=== PATIENT | female | born 1940 | race Caucasian/White ===

== ENCOUNTER 2018-05-11 10:18 | Observation (INO) | payer MEDICARE, OTHER, MEDICAID, SELFPAY ==
[2018-05-11] VITALS (79 sets, daily range): BP systolic 118–172; BP diastolic 44–93; PULSE 50–83; RESP 13–26; TEMP 36.5–37.7; O2SAT 90–99
--- NOTE | 2018-05-11 10:25 | W.ED.GENAD ---
Discharge Plan Disposition Condition: Improving Discharge Details Chief Complaint: Chest Pain Reason For Visit: CHEST PAIN Admit Date/Time: 05/11/18 17:37 Admit Provider: Andres Lewis Attending Provider: Andres Lewis Primary Care Provider: Tameka Kilgore ED Provider: Issa Alves Discharge Instructions Activity:: Activity as Tolerated Equipment/Supplies:: No Equipment Needed Diet:: Heart Healthy Discharge Orders Discharge Orders: Discharge Order (Routine); Ordered 05/12/18 Ordered By: Radha Farooq Discharge Data Discharge Date/Time-TO BE ENTERED AT DEPARTURE: 05/11/18 18:58 Medical Decision Making <TRESA Rahman - Last Filed: 05/13/18 10:54> Patient is 78-year-old female, accompanied by her daughter and brought in via EMS, with chief complaint of left-sided chest discomfort. She states that she awoke with this discomfort this morning at 0600. Patient has history of PA, hyperlipidemia, CKD, hypertension, poliomyelitis, COPD, anemia. Patient is status post CABG. Patient reports she is done quite well yesterday. No trauma. States she went for 2 half hour walks yesterday with no discomfort or anginal-like symptoms. States when she awoke with her discomfort, she felt weak which she describes further as fatigue. States she then laid back down. When she got up the second time, she found a friend who came to sit with her advise she contact EMS. EMS advised to take a nitro. She reports that she gave herself one nitro which did help with her symptoms. She was given 2 subsequent sublingual nitros in route to the hospital by EMS. Patient did receive aspirin from EMS. Reports that currently she is asymptomatic. Denies any palpitations. Patient reports that the pain does not feel like her previous PA is at that time she was having back pain and denies any back pain at this time peer On exam, patient has reproducible discomfort under the left breast, pain does wrap around with dermatomal distribution. No rashes noted. No signs of trauma. Lungs are clear. She is endorsing shortness of breath. Normal sinus rhythm, no murmurs rubs or gallops. She is endorsing some diffuse discomfort with palpation on exam of the abdomen but no peritoneal findings. No back pain. No CVA tenderness EKG reviewed by Dr. Greenfield. Patient is noted to be in normal sinus rhythm with a rate of 79. Advises no acute ischemic changes are noted. The patient's history, I am primarily concerned with cardiac etiology. However, his pain is reproducible on exam, is not exertional and is not similar to previous MIs, also consider other possible etiologies such as muscular skeletal discomfort, stress, pulmonary source. Calves are soft and nontender. No lower extremity edema. Patient is not anticoagulated. Chest x-ray reviewed by radiologist. No acute pulmonary process noted. Laboratory evaluation without significant abnormality. Troponin <0.02. BNP is minimally elevated. Repeat troponin remains <0.02. Patient states that the pain under the left breast had resolved Discussed treatment options with patient and her family. Her HEART score is moderate at 5. 2 negative troponins. discussed inpatient observation vs. outpatient management. Given her history and severity of discomfort that she experienced this morning she and her family feel inpatient care is appropriate. Given the HEART score, particularly the patients history, I agree with this plan. At this time, we do not have telemetry bed available. consulted with hospitalist at [facility]. He advised that outpatient care is appropriate at this time. However, he did advised that we could repeat a 3rd troponin. If this is negative, he reported it was delonte unlikely to be cardiac based. He does not know the tele bed availability and will call back. No call back from [facility]. 3rd troponin is pending. Again, discussed inpatient vs. outpatient treatment with the patient and her family and they prefer inpatient care. Tele is now available here, will consult with hospitalist here. At the end of my shift, care was transitioned to Sin Alves NP with 3rd troponin pending. He will discuss admission with hospitalist. HPI <TRESA Rahman - Last Filed: 05/13/18 10:54> General Mode of arrival: EMS. Date/Time Provider Initiated Documentation: 05/11/18 10:23. Limitations to Documentation: no limitations. Information obtained by: patient and family. History of Present Illness 78 year old F presents to the emergency department with the chief complaint of left sided chest pain, described as mild (states that pain has improved, pain was severe when it initially began upon awakening this AM), Quality is described as aching, and is localized to the chest. Patient reports no radiation; denies radiation to back, neck, extremity and abdomen. No relieving factors improve symptom(s), No exacerbating factors reported . Patient notes chest pain and shortness of breath (states this too has since resolved, associates with her COPD); denies cough, fever/chills, headaches, loss of appetite, nausea/vomiting, rash, syncope and weakness. Patient did receive the following treatments prior to arrival, Aspirin and other (sublingual nitro) Related Data Home Medications Medication Instructions Recorded Confirmed metoprolol tartrate 50 mg PO BID 02/15/17 05/11/18 pravastatin 20 mg PO DAILY 02/15/17 05/11/18 fluticasone-salmeterol [Advair 1 puff INHALATION BID #1 inh 05/03/17 05/11/18 Diskus] furosemide 40 mg PO DAILY #90 tab 07/25/17 isosorbide dinitrate 30 mg PO DAILY #90 tab 07/25/17 05/11/18 losartan 100 mg PO DAILY #90 tab 07/25/17 05/11/18 gabapentin 100 mg PO HS PRN #30 tab-cap 10/25/17 nystatin 100,000 unit/gram topical 1 applic TP TID PRN #30 gm 03/27/18 05/11/18 cream aspirin 81 mg PO DAILY #30 tab 05/12/18 omeprazole 20 mg PO DAILY #30 cap 05/12/18 Previous Rx's Medication Instructions Recorded fluticasone-salmeterol [Advair 1 puff INHALATION BID #1 inh 05/03/17 Diskus] furosemide 40 mg PO DAILY #90 tab 07/25/17 isosorbide dinitrate 30 mg PO DAILY #90 tab 07/25/17 losartan 100 mg PO DAILY #90 tab 07/25/17 nystatin 100,000 unit/gram topical 1 applic TP TID PRN #30 gm 03/27/18 cream aspirin 81 mg PO DAILY #30 tab 05/12/18 omeprazole 20 mg PO DAILY #30 cap 05/12/18 Allergies Allergy/AdvReac Type Severity Reaction Status Date / Time trimethoprim Allergy Intermediate Unverified 05/11/18 10:24 Sulfa (Sulfonamide Allergy Mild Unverified 05/11/18 10:24 Antibiotics) latex Allergy Skin Rash Unverified 05/11/18 10:24 tramadol AdvReac Mild Nausea Unverified 05/11/18 10:24 General Stated Complaint: Chest Pain ABNER: 2 Review of Systems <TRESA Rahman - Last Filed: 05/13/18 10:54> Constitutional Reports as per HPI, Denies chills, Denies fatigue, Denies fever(s) and Denies headache(s) ENT Denies headache(s) Cardiovascular Reports as per HPI, Reports chest pain, Reports chest pain at rest, Denies chest pain with activity (she reports no activitysince the onset of symptoms), Denies diaphoresis, Denies syncope, Denies pedal edema, Denies irregular heart rhythm, Denies leg edema, Denies lightheadedness, Denies radiating jaw, neck or arm pain, Denies palpitations and Reports dyspnea (associates with COPD) Respiratory Reports as per HPI, Denies cough, Reports pain on inspiration, Reports dyspnea (associates with COPD) and Denies wheezing Gastrointestinal Reports as per HPI, Denies abdominal pain, Denies change in stool character, Denies nausea and Denies vomiting Genitourinary Reports system reviewed and no additional complaints, except as docu (denies any change in urinary habits) Musculoskeletal Reports as per HPI and Denies back pain Integumentary/Breasts Reports as per HPI and Denies rash Neurologic Denies syncope and Denies headache(s) Endocrine Denies fatigue and Denies palpitations Allergic/Immunologic Denies wheezing Exam <TRESA Rahman - Last Filed: 05/13/18 10:54> Const General: cooperative, healthy appearing, comfortable, no acute distress and well developed Nutritional Appearance: average body habitus and well nourished Orientation: alert, awake and oriented x3 HENMT Head: normal to inspection Ears: hearing grossly normal bilaterally Mouth: moist mucous membranes Chest Chest: normal inspection of the chest (no visible abnormalities. Patient has discomfort with palpation under the left breast and extending around the left lateral chest wall. No discoloration, no rash. ), normal palpation of entire chest wall, no crepitus, tenderness and No rash Breast inspection: normal inspection of the breasts Resp Effort & Inspection: normal respiratory effort, able to speak in complete sentences and no respiratory distress Auscultation: clear to auscultation bilaterally, no rales, no rhonchi and no wheezes Cardio Rate: regular rate Rhythm: regular rhythm Heart Sounds: S1 normal and S2 normal GI Inspection: normal to inspection, no edema and non-distended Palpation: soft, no hepatosplenomegaly, not firm, no guarding, not rigid and nontender Auscultation: normal bowel sounds Back/Spine/Pelvis Back: no CVA tenderness Thoracic/Lumbar Spine: thoracic and lumbar spine normal to inspection Skin General skin exam: no rashes or lesions noted Trauma: no lacerations or abrasions Neuro General: alert, awake and oriented x3 Cognition: normal cognition Speech: speech normal Gait: normal gait Extrem General: normal to inspection, normal capillary refill, no pedal edema, no calf tenderness and normal gait Psych Appearance: grossly normal and well kempt Mental Status: mental status grossly normal Speech and Movement: speech and movement normal Course <TRESA Rahman - Last Filed: 05/13/18 10:54> Vital Signs Temperature 36.5 C 05/11/18 10:16 Pulse 81 05/11/18 10:16 Respiratory Rate 22 05/11/18 10:16 Blood Pressure 140/75 05/11/18 10:16 Pulse Oximetry 97 05/11/18 10:16 Temperature 36.5 C 05/11/18 10:16 Temperature Source Skin 05/11/18 10:16 Pulse 81 05/11/18 10:16 Respiratory Rate 22 05/11/18 10:20 Respiratory Effort 05/11/18 10:20 Respiratory Depth Normal 05/11/18 10:20 Respiratory Pattern Normal 05/11/18 10:20 Blood Pressure 140/75 05/11/18 10:16 Pulse Oximetry 97 05/11/18 10:16 Oxygen Delivery Method Room Air 05/11/18 10:16 Oxygen Flow Rate 0 05/11/18 10:16 Pain Level 7 05/11/18 10:20 Sign Out <TRESA Rahman - Last Filed: 05/13/18 10:54> Sign Out Data: Sign Out Comment: Care transitioned to Sin Alves NP with 3rd troponin pending, awaiting hospitalist consult. Last updated by Ml Jessica PA at 05/11/18 17:15 Post-Handoff Eval: Patient admitted to hospital service still pending third troponin and no change in condition. Patient was in agreement of plan of care to be admitted for further observation due to chest pain and moderate risk factors.
--- NOTE | 2018-05-11 10:37 | DI.RAD_ITS ---
SYMPTOM/DIAGNOSISs: LEFT SIDED CP PA AND LATERAL CHEST: 05/11 The heart is not enlarged. There are mediastinal vascular clips consistent with previous CABG surgery. The lungs are clear. No pleural effusion seen. CONCLUSION: No evidence of acute disease.
[2018-05-11 10:41] LABS: Abs Immature Grans 0.01 k/cumm (0.0-0.09); Absolute Basophil Count 0.01 k/cumm (0.0-0.2); Absolute Eosinophil Count 0.12 k/cumm (0.0-0.7); Absolute Lymphocyte Count 0.79 k/cumm (1.2-3.4); Absolute Monocyte Count 0.45 k/cumm (0.11-0.7); Absolute Neutrophil Count 4.99 k/cumm (1.2-6.7); Basophils % 0.2; Eosinophils % 1.9; HCT 42.7 % (36.0-46.0); HGB 14.2 g/dL (12.0-15.5); Immature Grans % 0.2; Lymphocytes % 12.4; Mean Corp. HGB Concentration 33.3 g/dL (32.0-36.0); Mean Corpuscular Hemoglobin 29.5 pg (27.0-33.0); Mean Corpuscular Volume 88.6 fL (80-95); Mean Platelet Volume 11.3 fL (8.0-11.0); Monocytes % 7.1; Neutrophils % 78.2; Platelet Count 157 x1000/uL (130-400); RBC 4.82 m/cumm (4.00-5.20); RBC Distribution Width 13.7 % (11.7-14.6); White Blood Cell Count 6.37 k/cumm (4.4-10.8)
--- NOTE | 2018-05-11 10:43 | ED.GENADUL_ITS ---
Discharge Plan Disposition Condition: Improving Discharge Details Chief Complaint: Chest Pain Reason For Visit: CHEST PAIN Admit Date/Time: 05/11/18 17:37 Admit Provider: Andres Lewis Attending Provider: Andres Lewis Primary Care Provider: Tameka Kilgore ED Provider: Issa Alves Discharge Instructions Activity:: Activity as Tolerated Equipment/Supplies:: No Equipment Needed Diet:: Heart Healthy Discharge Orders Discharge Orders: Discharge Order (Routine); Ordered 05/12/18 Ordered By: Radha Farooq Discharge Data Discharge Date/Time-TO BE ENTERED AT DEPARTURE: 05/11/18 18:58 Medical Decision Making <TRESA Rahman - Last Filed: 05/13/18 10:54> Patient is 78-year-old female, accompanied by her daughter and brought in via EMS, with chief complaint of left-sided chest discomfort. She states that she awoke with this discomfort this morning at 0600. Patient has history of LA, hyperlipidemia, CKD, hypertension, poliomyelitis, COPD, anemia. Patient is status post CABG. Patient reports she is done quite well yesterday. No trauma. States she went for 2 half hour walks yesterday with no discomfort or anginal-like symptoms. States when she awoke with her discomfort, she felt weak which she describes further as fatigue. States she then laid back down. When she got up the second time, she found a friend who came to sit with her advise she contact EMS. EMS advised to take a nitro. She reports that she gave herself one nitro which did help with her symptoms. She was given 2 subsequent sublingual nitros in route to the hospital by EMS. Patient did receive aspirin from EMS. Reports that currently she is asymptomatic. Denies any palpitations. Patient reports that the pain does not feel like her previous LA is at that time she was having back pain and denies any back pain at this time peer On exam, patient has reproducible discomfort under the left breast, pain does wrap around with dermatomal distribution. No rashes noted. No signs of trauma. Lungs are clear. She is endorsing shortness of breath. Normal sinus rhythm, no murmurs rubs or gallops. She is endorsing some diffuse discomfort with palpation on exam of the abdomen but no peritoneal findings. No back pain. No CVA tenderness EKG reviewed by Dr. Greenfield. Patient is noted to be in normal sinus rhythm with a rate of 79. Advises no acute ischemic changes are noted. The patient's history, I am primarily concerned with cardiac etiology. However , his pain is reproducible on exam, is not exertional and is not similar to previous MIs, also consider other possible etiologies such as muscular skeletal discomfort, stress, pulmonary source. Calves are soft and nontender. No lower extremity edema. Patient is not anticoagulated. Chest x-ray reviewed by radiologist. No acute pulmonary process noted. Laboratory evaluation without significant abnormality. Troponin <0.02. BNP is minimally elevated. Repeat troponin remains <0.02. Patient states that the pain under the left breast had resolved Discussed treatment options with patient and her family. Her HEART score is moderate at 5. 2 negative troponins. discussed inpatient observation vs. outpatient management. Given her history and severity of discomfort that she experienced this morning she and her family feel inpatient care is appropriate. Given the HEART score, particularly the patients history, I agree with this plan. At this time, we do not have telemetry bed available. consulted with hospitalist at [facility]. He advised that outpatient care is appropriate at this time. However, he did advised that we could repeat a 3rd troponin. If this is negative, he reported it was delonte unlikely to be cardiac based. He does not know the tele bed availability and will call back. No call back from [facility]. 3rd troponin is pending. Again, discussed inpatient vs. outpatient treatment with the patient and her family and they prefer inpatient care. Tele is now available here, will consult with hospitalist here. At the end of my shift, care was transitioned to Sin Alves NP with 3rd troponin pending. He will discuss admission with hospitalist. HPI <TRESA Rahman - Last Filed: 05/13/18 10:54> General Mode of arrival: EMS . Date/Time Provider Initiated Documentation: 05/11/18 10:23 . Limitations to Documentation: no limitations . Information obtained by: patient and family . History of Present Illness 78 year old F presents to the emergency department with the chief complaint of left sided chest pain, described as mild (states that pain has improved, pain was severe when it initially began upon awakening this AM), Quality is described as aching, and is localized to the chest. Patient reports no radiation; denies radiation to back, neck, extremity and abdomen. No relieving factors improve symptom(s), No exacerbating factors reported . Patient notes chest pain and shortness of breath (states this too has since resolved, associates with her COPD); denies cough, fever/chills, headaches, loss of appetite, nausea/vomiting, rash, syncope and weakness. Patient did receive the following treatments prior to arrival, Aspirin and other ( sublingual nitro) Related Data Home Medications Medication Instructions Recorded Confirmed metoprolol tartrate 50 mg PO BID 02/15/17 05/11/18 pravastatin 20 mg PO DAILY 02/15/17 05/11/18 fluticasone-salmeterol [Advair 1 puff INHALATION BID #1 inh 05/03/17 05/11/18 Diskus] furosemide 40 mg PO DAILY #90 tab 07/25/17 isosorbide dinitrate 30 mg PO DAILY #90 tab 07/25/17 05/11/18 losartan 100 mg PO DAILY #90 tab 07/25/17 05/11/18 gabapentin 100 mg PO HS PRN #30 tab-cap 10/25/17 nystatin 100,000 unit/gram topical 1 applic TP TID PRN #30 gm 03/27/18 05/11/18 cream aspirin 81 mg PO DAILY #30 tab 05/12/18 omeprazole 20 mg PO DAILY #30 cap 05/12/18 Previous Rx's Medication Instructions Recorded fluticasone-salmeterol [Advair 1 puff INHALATION BID #1 inh 05/03/17 Diskus] furosemide 40 mg PO DAILY #90 tab 07/25/17 isosorbide dinitrate 30 mg PO DAILY #90 tab 07/25/17 losartan 100 mg PO DAILY #90 tab 07/25/17 nystatin 100,000 unit/gram topical 1 applic TP TID PRN #30 gm 03/27/18 cream aspirin 81 mg PO DAILY #30 tab 05/12/18 omeprazole 20 mg PO DAILY #30 cap 05/12/18 Allergies Allergy/AdvReac Type Severity Reaction Status Date / Time trimethoprim Allergy Intermediate Unverified 05/11/18 10:24 Sulfa (Sulfonamide Allergy Mild Unverified 05/11/18 10:24 Antibiotics) latex Allergy Skin Rash Unverified 05/11/18 10:24 tramadol AdvReac Mild Nausea Unverified 05/11/18 10:24 General Stated Complaint: Chest Pain ABNER: 2 Review of Systems <TRESA Rahman - Last Filed: 05/13/18 10:54> Constitutional Reports as per HPI, Denies chills, Denies fatigue, Denies fever(s) and Denies headache(s) ENT Denies headache(s) Cardiovascular Reports as per HPI, Reports chest pain, Reports chest pain at rest, Denies chest pain with activity (she reports no activitysince the onset of symptoms), Denies diaphoresis, Denies syncope, Denies pedal edema, Denies irregular heart rhythm, Denies leg edema, Denies lightheadedness, Denies radiating jaw, neck or arm pain, Denies palpitations and Reports dyspnea (associates with COPD) Respiratory Reports as per HPI, Denies cough, Reports pain on inspiration, Reports dyspnea ( associates with COPD) and Denies wheezing Gastrointestinal Reports as per HPI, Denies abdominal pain, Denies change in stool character, Denies nausea and Denies vomiting Genitourinary Reports system reviewed and no additional complaints, except as docu (denies any change in urinary habits) Musculoskeletal Reports as per HPI and Denies back pain Integumentary/Breasts Reports as per HPI and Denies rash Neurologic Denies syncope and Denies headache(s) Endocrine Denies fatigue and Denies palpitations Allergic/Immunologic Denies wheezing Exam <TRESA Rahman - Last Filed: 05/13/18 10:54> Const General: cooperative, healthy appearing, comfortable, no acute distress and well developed Nutritional Appearance: average body habitus and well nourished Orientation: alert, awake and oriented x3 HENMT Head: normal to inspection Ears: hearing grossly normal bilaterally Mouth: moist mucous membranes Chest Chest: normal inspection of the chest (no visible abnormalities. Patient has discomfort with palpation under the left breast and extending around the left lateral chest wall. No discoloration, no rash. ), normal palpation of entire chest wall, no crepitus, tenderness and No rash Breast inspection: normal inspection of the breasts Resp Effort & Inspection: normal respiratory effort, able to speak in complete sentences and no respiratory distress Auscultation: clear to auscultation bilaterally, no rales, no rhonchi and no wheezes Cardio Rate: regular rate Rhythm: regular rhythm Heart Sounds: S1 normal and S2 normal GI Inspection: normal to inspection, no edema and non-distended Palpation: soft, no hepatosplenomegaly, not firm, no guarding, not rigid and nontender Auscultation: normal bowel sounds Back/Spine/Pelvis Back: no CVA tenderness Thoracic/Lumbar Spine: thoracic and lumbar spine normal to inspection Skin General skin exam: no rashes or lesions noted Trauma: no lacerations or abrasions Neuro General: alert, awake and oriented x3 Cognition: normal cognition Speech: speech normal Gait: normal gait Extrem General: normal to inspection, normal capillary refill, no pedal edema, no calf tenderness and normal gait Psych Appearance: grossly normal and well kempt Mental Status: mental status grossly normal Speech and Movement: speech and movement normal Course <TRESA Rahman - Last Filed: 05/13/18 10:54> Vital Signs Temperature 36.5 C 05/11/18 10:16 Pulse 81 05/11/18 10:16 Respiratory Rate 22 05/11/18 10:16 Blood Pressure 140/75 05/11/18 10:16 Pulse Oximetry 97 05/11/18 10:16 Temperature 36.5 C 05/11/18 10:16 Temperature Source Skin 05/11/18 10:16 Pulse 81 05/11/18 10:16 Respiratory Rate 22 05/11/18 10:20 Respiratory Effort 05/11/18 10:20 Respiratory Depth Normal 05/11/18 10:20 Respiratory Pattern Normal 05/11/18 10:20 Blood Pressure 140/75 05/11/18 10:16 Pulse Oximetry 97 05/11/18 10:16 Oxygen Delivery Method Room Air 05/11/18 10:16 Oxygen Flow Rate 0 05/11/18 10:16 Pain Level 7 05/11/18 10:20 Sign Out <TRESA Rahman - Last Filed: 05/13/18 10:54> Sign Out Data: Sign Out Comment: Care transitioned to Sin Alves NP with 3rd troponin pending , awaiting hospitalist consult. Last updated by Ml Jessica PA at 05/11/18 17:15 Post-Handoff Eval: Patient admitted to hospital service still pending third troponin and no change in condition. Patient was in agreement of plan of care to be admitted for further observation due to chest pain and moderate risk factors.
[2018-05-11 10:58] LABS: Bilirubin Negative (Negative); Blood Negative (Negative); Clarity Clear; Glucose Negative (Negative); Ketones Negative (Negative); Leukocyte Esterase Small (Negative); Nitrite Negative (Negative)
[2018-05-11 11:07] LABS: ALT 21 U/L (12-78); AST 20 U/L (15-37); Albumin 3.8 g/dL (3.4-5.0); Alkaline Phosphatase 67 U/L (46-116); Anion Gap 10.5 mmol/L (3-11); BUN 15 mg/dL (7-18); Bilirubin, Total 0.5 mg/dL (0.2-1.0); CO2 26.5 mmol/L (21.0-32.0); CREATININE 1.14 mg/dL (0.55-1.02); Calcium 9.2 mg/dL (8.5-10.1); Chloride 106 mmol/L (98-107); Estimated GFR 46.22 (mL/min/1.73m2); Glucose 100 mg/dL (70-100); NT-proBNP 388 pg/mL; PTT Activated 27.5 sec (21.0-31.4); Potassium 4.1 mmol/L (3.5-5.1); Prothrombin Time 9.9 sec (9.3-10.8); Sodium 143 mmol/L (136-145); Total Protein 7.3 g/dL (6.4-8.2)
[2018-05-11 11:08] LABS: Troponin I < 0.02 ng/mL (0.00-0.06)
[2018-05-11 11:09] LABS: Bacteria Few HPF (Negative); C & S Indicated? No/Sq. Contamination; Casts Negative LPF (Negative); Crystals Negative HPF (Negative); Epithelial Cells Many HPF (Negative); Mucus Moderate (Negative); RBC Negative (0-2)
[2018-05-11 14:17] LABS: Troponin I < 0.02 ng/mL (0.00-0.06)
[2018-05-11] MEDS: Acetaminophen 500 MG TAB (16:35)
[2018-05-11 17:19] LABS: Troponin I < 0.02 ng/mL (0.00-0.06)
--- NOTE | 2018-05-11 19:31 | NUR.NOTE ---
Patient admitted from ED to actue unit at 19:10, A+Ox3, oriented to room environment and call doss, assessment performed and as documented.:
[2018-05-11 19:49] LABS: D-Dimer 489 ng/mlFEU (<500)
[2018-05-11] MEDS: Enoxaparin 40 MG/0.4 ML SYR SC (20:15)
[2018-05-11] MEDS: Pantoprazole 40 MG TABCR PO (21:13)
--- NOTE | 2018-05-11 21:18 | W.PM.HP.N ---
Date of service: 05/11/18 Time of Service: 21:18 Assessment and Plan (1) Atypical chest pain: Current visit: No Status: Acute patient has atypical chest pain. She had substernal chest pressure that awoke her around 6 a.m. not associated w/ dyspnea. She has been able to walk her dog w/out chest pain or significant dyspnea. She walked for two walks for up to half an hour yesterday w/out symptoms. Yet today she has had substernal chest heaviness off and on all morning until about noon when it finally resolved. Initially her CP was not relieved by her NTG she had on hand but also it did not give her a stinging sensation under her tongue. Also the first NTG given by EMS she says did not help but finally after the third NTG and 4 ASA 81 mg tabs she had some improvement but not resolution of her CP. Her troponins are negative x 3 sets throughout the day (beginning at 10:20 a.m. and the last one at 16:50. Her d-dimer was normal. Her CXR showed no acute abnormalities. She has been depressed d/t her daughter's recent from [place]. I believe that some of her discomfort is anxiety related, however she never had a follow up stress MPI or cardiac cath after her 5 vessel CABG in 2011. She reportedly had an IA a few weeks after her CABG. She is agreeable to having a stress MPI tomorrow if we can arrange this as an inpatient otherwise she can be discharged and followed up as an outpatient. History of Present Illness Chief Complaint: chest pain Narrative: 78 yr old female w/ PMH CAD (s/p CABG 5 vessel in 2011) who walks daily for up to half an hour w/out exertional angina. She went for two walks yesterday w/out chest pain. She has COPD and willl get PATHAK w/ walking up hills but is able to climb stairs w/out dyspnea or chest pain. She was brought to the ER by her daughter d/t left sided chest pains that awok her from sleep at 6:00 a.m. She took a nitroglycerin tablet she had on hand but did not receive any relief but also did not note any stinging under tongue and therefore thought that this must be an old prescription. She called a neighbor over who advised her to call EMS. According to the patient EMS gave her two NTG. The first one did not seem to help but her CP improved with the second NTG tablet. Evaluation in the ER included serial troponins which were normal x 3 sets. EKG which showed no acute ischemic changes and CXR which was unremarkable. The PA in the ER had scored her as moderate on the HEART emergency room chest pain score (a 5) and therefore felt that the patient should remain hospitalized overnight for stress MPI even though her chest pain was reproducible w/ palpation of her chest wall and her troponins were all negative. Review of Systems Constitutional Reports as per HPI Eyes Reports system reviewed and no additional complaints, except as docu ENT Reports system reviewed and no additional complaints, except as docu Cardiovascular Reports as per [facility], Reports chest pain at rest, Denies chest pain with activity, Denies syncope, Denies pedal edema, Denies lightheadedness, Reports dyspnea on exertion (with walking up hills or for prolonged or fast walks; however can climb 15 to 20 stairs in her apartment building), Denies orthopnea and Denies paroxysmal nocturnal dyspnea Respiratory Reports dyspnea on exertion (with walking up hills or for prolonged or fast walks; however can climb 15 to 20 stairs in her apartment building) Gastrointestinal Reports system reviewed and no additional complaints, except as docu Genitourinary Reports system reviewed and no additional complaints, except as docu Musculoskeletal Reports system reviewed and no additional complaints, except as docu Integumentary/Breasts Reports system reviewed and no additional complaints, except as docu Neurologic Reports system reviewed and no additional complaints, except as docu and Denies syncope Psychiatric Reports system reviewed and no additional complaints, except as docu Endocrine Reports system reviewed and no additional complaints, except as docu Hematologic/Lymphatic Reports system reviewed and no additional complaints, except as docu Allergic/Immunologic Reports system reviewed and no additional complaints, except as docu PFSH Personal history of colonic polyps (Chronic 02/10/17) Old myocardial infarction (Chronic 02/10/17) Mixed hyperlipidemia (Chronic 02/10/17) Hypertensive chronic kidney disease with stage 1 through stage 4 chronic kidney disease, or unspecified chronic kidney disease (Chronic 02/10/17) Hypertension (Chronic 03/02/17) History of poliomyelitis (Chronic 02/10/17) Heme positive stool (Chronic) COPD (chronic obstructive pulmonary disease) (Chronic 02/10/17) Atherosclerotic heart disease of [place] coronary artery with other forms of angina pectoris (Chronic 02/10/17) Anemia (Chronic 02/10/17) Abnormal results of thyroid function studies (Chronic 02/10/17) Family History Mother Neoplasm Sister Essential hypertension Heart disease Grandparent Diabetes Myocardial infarction Brother Heart disease Daughter Myocardial infarction Ankle Surgery Coronary Artery 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) Cholecystectomy Tonsillectomy Presence of coronary angioplasty implant and graft (Chronic 02/10/17) Family History Mother Neoplasm Sister Essential hypertension Heart disease Grandparent Diabetes Myocardial infarction Brother Heart disease Daughter Myocardial infarction Medical History Personal history of colonic polyps (Chronic 02/10/17) Old myocardial infarction (Chronic 02/10/17) Mixed hyperlipidemia (Chronic 02/10/17) Hypertensive chronic kidney disease with stage 1 through stage 4 chronic kidney disease, or unspecified chronic kidney disease (Chronic 02/10/17) Hypertension (Chronic 03/02/17) History of poliomyelitis (Chronic 02/10/17) Heme positive stool (Chronic) COPD (chronic obstructive pulmonary disease) (Chronic 02/10/17) Atherosclerotic heart disease of [place] coronary artery with other forms of angina pectoris (Chronic 02/10/17) Anemia (Chronic 02/10/17) Abnormal results of thyroid function studies (Chronic 02/10/17) Social History adopted: No foster care: No current occupational status: retired pets and animals: Yes (1) pets and animals: dog(s) Smoking/Tobacco Use Status: Former Tobacco Use how long ago did patient quit smokin+ years alcohol intake: current alcohol intake frequency: 0-2 drinks per day substance use type: does not use Surgical History Ankle Surgery Coronary Artery 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) Cholecystectomy Tonsillectomy Presence of coronary angioplasty implant and graft (Chronic 02/10/17) Social History adopted: No foster care: No current occupational status: retired pets and animals: Yes (1) pets and animals: dog(s) Smoking/Tobacco Use Status: Former Tobacco Use how long ago did patient quit smokin+ years alcohol intake: current alcohol intake frequency: 0-2 drinks per day substance use type: does not use Meds Home Medications Medication Instructions Recorded Confirmed Type metoprolol tartrate 50 mg PO BID 02/15/17 05/11/18 History pravastatin 20 mg PO DAILY 02/15/17 05/11/18 History fluticasone-salmeterol [Advair 1 puff INHALATION BID #1 inh 05/03/17 05/11/18 Rx Diskus] furosemide 40 mg PO DAILY #90 tab 07/25/17 Rx isosorbide dinitrate 30 mg PO DAILY #90 tab 07/25/17 05/11/18 Rx losartan 100 mg PO DAILY #90 tab 07/25/17 05/11/18 Rx gabapentin 100 mg PO HS PRN #30 tab-cap 10/25/17 History nystatin 100,000 unit/gram topical 1 applic TP TID PRN #30 gm 03/27/18 05/11/18 Rx cream aspirin 81 mg PO DAILY #30 tab 05/12/18 Rx omeprazole 20 mg PO DAILY #30 cap 05/12/18 Rx Allergies Allergy/AdvReac Type Severity Reaction Status Date / Time trimethoprim Allergy Intermediate Unverified 05/11/18 10:24 Sulfa (Sulfonamide Allergy Mild Unverified 05/11/18 10:24 Antibiotics) latex Allergy Skin Rash Unverified 05/11/18 10:24 tramadol AdvReac Mild Nausea Unverified 05/11/18 10:24 Exam Const General: cooperative, healthy appearing, comfortable, no acute distress, well developed and well groomed Nutritional Appearance: average body habitus Orientation: alert, awake and oriented x3 HENMT Head: normal to inspection, no palpable skull fracture, normocephalic and atraumatic Ears: hearing grossly normal bilaterally, external ears normal and TM's normal bilaterally General nose exam: external nose normal, nares normal, no nasal polyps, nasal mucous membranes and turbinates normal, septum normal and no nasal discharge Face and sinus: normal facial exam Mouth: oral mucosae normal, lip normal, tongue normal, oropharynx normal and moist mucous membranes Teeth and gingiva: dentures Throat: posterior oropharynx normal Eyes General: appearance normal, both eyes and all related structures Visual Adame: normal visual adame by confrontation Alignment and Position: alignment normal Periorbital: periorbital findings normal Eyelids: eyelids normal Conjunctivae: conjunctivae normal Sclera: sclerae normal Cornea: corneas normal Pupils: PERRL EOM: EOM intact bilaterally Direct ophthalmoscopy: normal light reflex Neck Neck: normal visual inspection, full ROM, no lymphadenopathy, trachea midline and supple Thyroid: thyroid normal Carotids: normal carotid upstroke and bruit on the left Lymphatic: no lymphadenopathy noted Resp Effort & Inspection: normal respiratory effort and able to speak in complete sentences Auscultation: crackles bilaterally at the base Cardio Jugular venous pressure: no JVD Palpation: normal PMI Rate: regular rate Rhythm: regular rhythm Heart Sounds: S1 normal, S2 normal, normal, physiologic split S2, no gallops, no murmurs and no rubs Bruits: no abdominal aortic bruits, carotid bruit on the left and no renal bruits Pulses: normal peripheral pulses GI Inspection: normal to inspection Palpation: soft and no hepatosplenomegaly Percussion: normal to percussion Auscultation: normal bowel sounds Rectal Exam - female: deferred Skin General skin exam: no rashes or lesions noted and elasticity normal Lesions: no lesions Rashes: no rashes Trauma: no lacerations or abrasions Neuro General: alert, awake, oriented x3, moves all extremities and no focal motor deficits Cranial Nerves: CN's II-XI intact bilaterally Cognition: normal cognition Speech: speech normal Motor: muscle tone normal throughout, strength 5/5 throughout and no movement abnormalities noted Sensory Exam: no sensory deficits noted Extrem General: normal to inspection, full ROM, normal capillary refill and no joint enlargement Psych Appearance: grossly normal and well kempt Mental Status: mental status grossly normal Speech and Movement: speech and movement normal Mood: congruent mood Affect: normal affect Attitude: cooperative Thought Process: normal Thought Content: normal Insight: insight good Judgment: judgment good Results Imaging Chest x-ray: report reviewed (PA AND LATERAL CHEST: 05/11 The heart is not enlarged. There are mediastinal vascular clips consistent with previous CABG surgery. The lungs are clear. No pleural effusion seen. CONCLUSION: No evidence of acute disease.) EKG: image reviewed (sinus rhythm rate of 79 bpm, non-specific ST depression) Labs : 05/11/18 10:20 05/11/18 10:20 Laboratory Results - last 24 hr 05/11/18 05/11/18 05/11/18 10:20 10:20 10:20 WBC 6.37 RBC 4.82 Hgb 14.2 Hct 42.7 MCV 88.6 MCH 29.5 MCHC 33.3 RDW 13.7 Plt Count 157 MPV 11.3 H Immature Gran % 0.2 Neutrophils % 78.2 Lymphocytes % 12.4 Monocytes % 7.1 Eosinophils % 1.9 Basophils % 0.2 Absolute Neutrophils 4.99 Absolute Lymphocytes 0.79 L Absolute Monocytes 0.45 Absolute Eosinophils 0.12 Absolute Basophils 0.01 PT 9.9 INR 1.0 APTT 27.5 D-Dimer Sodium 143 Potassium 4.1 Chloride 106 Carbon Dioxide 26.5 Anion Gap 10.5 BUN 15 Creatinine 1.14 H Estimated GFR/1.73 m2 46.22 Glucose 100 Calcium 9.2 Magnesium 2.0 Total Bilirubin 0.5 AST 20 ALT 21 Alkaline Phosphatase 67 Troponin I < 0.02 NT-Pro-B Natriuret Pep 388 H Total Protein 7.3 Albumin 3.8 Urine Color Urine Clarity Urine pH Ur Specific [place] Urine Protein Urine Ketones Urine Blood Urine Nitrite Urine Bilirubin Urine Urobilinogen Ur Leukocyte Esterase Urine RBC Urine WBC Ur Epithelial Cells Urine Crystals Urine Bacteria Urine Casts Urine Mucus Ur Culture Indicated? Urine Glucose 05/11/18 05/11/18 05/11/18 10:50 13:48 16:50 WBC RBC Hgb Hct MCV MCH MCHC RDW Plt Count MPV Immature Gran % Neutrophils % Lymphocytes % Monocytes % Eosinophils % Basophils % Absolute Neutrophils Absolute Lymphocytes Absolute Monocytes Absolute Eosinophils Absolute Basophils PT INR APTT D-Dimer Sodium Potassium Chloride Carbon Dioxide Anion Gap BUN Creatinine Estimated GFR/1.73 m2 Glucose Calcium Magnesium Total Bilirubin AST ALT Alkaline Phosphatase Troponin I < 0.02 < 0.02 NT-Pro-B Natriuret Pep Total Protein Albumin Urine Color Yellow Urine Clarity Clear Urine pH 7.0 Ur Specific [place] 1.020 Urine Protein Negative Urine Ketones Negative Urine Blood Negative Urine Nitrite Negative Urine Bilirubin Negative Urine Urobilinogen 1.0 H Ur Leukocyte Esterase Small H Urine RBC Negative Urine WBC 5-10 Ur Epithelial Cells Many Urine Crystals Negative Urine Bacteria Few Urine Casts Negative Urine Mucus Moderate Ur Culture Indicated? No/sq. contamination Urine Glucose Negative 05/11/18 18:38 WBC RBC Hgb Hct MCV MCH MCHC RDW Plt Count MPV Immature Gran % Neutrophils % Lymphocytes % Monocytes % Eosinophils % Basophils % Absolute Neutrophils Absolute Lymphocytes Absolute Monocytes Absolute Eosinophils Absolute Basophils PT INR APTT D-Dimer 489 Sodium Potassium Chloride Carbon Dioxide Anion Gap BUN Creatinine Estimated GFR/1.73 m2 Glucose Calcium Magnesium Total Bilirubin AST ALT Alkaline Phosphatase Troponin I NT-Pro-B Natriuret Pep Total Protein Albumin Urine Color Urine Clarity Urine pH Ur Specific [place] Urine Protein Urine Ketones Urine Blood Urine Nitrite Urine Bilirubin Urine Urobilinogen Ur Leukocyte Esterase Urine RBC Urine WBC Ur Epithelial Cells Urine Crystals Urine Bacteria Urine Casts Urine Mucus Ur Culture Indicated? Urine Glucose Last Vital Signs Temp 37.7 C H 05/11/18 19:16 Pulse 70 05/11/18 19:16 Resp 18 05/11/18 19:16 BP 127/61 05/11/18 19:16 Pulse Ox 94 L 05/11/18 19:16
[2018-05-12] VITALS (8 sets, daily range): BP systolic 137–176; BP diastolic 73–89; PULSE 47–60; RESP 18–20; TEMP 36.5–37.5; O2SAT 95–98
[2018-05-12] MEDS: Metoprolol 50 MG TAB PO (00:07)
[2018-05-12] MEDS: Pravastatin 20 MG TAB PO (07:56)
[2018-05-12] MEDS: Normal Saline Flush 10 ML SYR IVP (07:56)
[2018-05-12] MEDS: Losartan 50 MG TAB 100 MG PO (07:56)
[2018-05-12] MEDS: Isosorbide Mononitrate 30 MG TABCR PO (10:46)
[2018-05-12] MEDS: Budesonide/Formoterol 160/4.5 6 GM 60 PUFF INH IH (10:49)
--- NOTE | 2018-05-12 11:25 | PDOC.CMIN ---
- If Service Date Differs Date of service: 05/12/18 Time of Service: 11:25 Care Management Initial Assess REASON FOR HOSPITALIZATION:: Chest Pain PAST MEDICAL HISTORY/PAST SURGICAL HISTORY:: Personal history of colonic polyps (Chronic 02/10/17). Old myocardial infarction (Chronic 02/10/17). Mixed hyperlipidemia (Chronic 02/10/17). Hypertensive chronic kidney disease with stage 1 through stage 4 chronic kidney disease, or unspecified chronic kidney disease (Chronic 02/10/17). Hypertension (Chronic 03/02/17). History of poliomyelitis (Chronic 02/10/17). Heme positive stool (Chronic). COPD (chronic obstructive pulmonary disease) (Chronic 02/10/17). Atherosclerotic heart disease of [place] coronary artery with other forms of angina pectoris (Chronic 02/10/17). Anemia (Chronic 02/10/17). Abnormal results of thyroid function studies (Chronic 02/10/17). Ankle Surgery. Coronary Artery 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). Cholecystectomy. Tonsillectomy. Presence of coronary angioplasty implant and graft (Chronic 02/10/17) PREVIOUS FUNCTIONAL STATUS/SOCIAL/FAMILY SUPPORTS:: Alice resides alone at [facility] in [facility]. She states that she has six children, two whom reside locally. Alice discusses that her oldest daughter two weeks ago, and CM provided reflective listening. Alice states that she has over 35 grandchildren, and that her family is very supportive. She does not drive, and states that she depends on the [facility] bus as well as family/friends for support with driving. CURRENT FUNCTIONAL STATUS:: Currently Alice is sitting up in her chair when this web content writer visits. She states that she hopes she is discharged home today. ADVANCE DIRECTIVES:: None on file Has patient been provided with information about the portal?: Yes Did the patient sign up for the portal?: No CODE STATUS:: Full Code INSURANCE COVERAGE / FINANCIAL ISSUES:: Medicare, Medicaid, for Life CURRENT HOME/COMMUNITY SERVICES/EQUIPMENT:: Currently Alice has no services or medical equipment in the community. PRIMARY CARE PHYSICIAN:: Tameka Kilgore POTENTIAL DISCHARGE NEEDS:: F/U appointment with PCP PATIENT/FAMILY EDUCATION NEEDS:: Review DC instructions, any limitations, and ongoing DC planning discussion. Discuss Ask Me Three ANTICIPATED BARRIERS TO DISCHARGE:: None identified at this time. TRANSPORTATION:: Via private vehicle with daughter PLAN:: Alice will return home with no anticipated services once medically cleared. She will F/U with PCP and plan of care as prescribed. Alice's daughter will transport her home.
--- NOTE | 2018-05-12 12:27 | INITIAL_ITS ---
- If Service Date Differs Date of service: 05/12/18 Time of Service: 11:25 Care Management Initial Assess REASON FOR HOSPITALIZATION:: Chest Pain PAST MEDICAL HISTORY/PAST SURGICAL HISTORY:: Personal history of colonic polyps (Chronic 02/10/17). Old myocardial infarction (Chronic 02/10/17). Mixed hyperlipidemia (Chronic 02/10/17). Hypertensive chronic kidney disease with stage 1 through stage 4 chronic kidney disease, or unspecified chronic kidney disease (Chronic 02/10/17). Hypertension (Chronic 03/02/17). History of poliomyelitis (Chronic 02/10/17). Heme positive stool (Chronic). COPD ( chronic obstructive pulmonary disease) (Chronic 02/10/17). Atherosclerotic heart disease of [place] coronary artery with other forms of angina pectoris ( Chronic 02/10/17). Anemia (Chronic 02/10/17). Abnormal results of thyroid function studies (Chronic 02/10/17). Ankle Surgery. Coronary Artery 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). Cholecystectomy. Tonsillectomy. Presence of coronary angioplasty implant and graft (Chronic 02/10/17) PREVIOUS FUNCTIONAL STATUS/SOCIAL/FAMILY SUPPORTS:: Alice resides alone at [facility] in [facility]. She states that she has six children , two whom reside locally. Alice discusses that her oldest daughter two weeks ago, and CM provided reflective listening. Alice states that she has over 35 grandchildren, and that her family is very supportive. She does not drive, and states that she depends on the [facility] bus as well as family/friends for support with driving. CURRENT FUNCTIONAL STATUS:: Currently Alice is sitting up in her chair when this speech writer visits. She states that she hopes she is discharged home today. ADVANCE DIRECTIVES:: None on file Has patient been provided with information about the portal?: Yes Did the patient sign up for the portal?: No CODE STATUS:: Full Code INSURANCE COVERAGE / FINANCIAL ISSUES:: Medicare, Medicaid, for Life CURRENT HOME/COMMUNITY SERVICES/EQUIPMENT:: Currently Alice has no services or medical equipment in the community. PRIMARY CARE PHYSICIAN:: Tameka Kilgore POTENTIAL DISCHARGE NEEDS:: F/U appointment with PCP PATIENT/FAMILY EDUCATION NEEDS:: Review DC instructions, any limitations, and ongoing DC planning discussion. Discuss Ask Me Three ANTICIPATED BARRIERS TO DISCHARGE:: None identified at this time. TRANSPORTATION:: Via private vehicle with daughter PLAN:: Alice will return home with no anticipated services once medically cleared. She will F/U with PCP and plan of care as prescribed. Alice's daughter will transport her home.
--- NOTE | 2018-05-12 14:52 | W.PM.DS.N ---
Date of service: 05/12/18 Time of Service: 14:53 DS: Diagnosis Discharge Diagnosis (1) Atypical chest pain: Status: Acute Discharge Plan Disposition Patient Disposition: HOME Condition: Improving Discharge Details Reason For Visit: CHEST PAIN Admit Date/Time: 05/11/18 17:37 Admit Provider: Andres Lewis Attending Provider: Andres Lewis Primary Care Provider: Tameka Kilgore Hospital Course Hospital Course: Alice is a 78-year-old female with a past medical history significant for history of [place], hyperlipidemia, CKD, hypertension, poliomyelitis, COPD, anemia. Patient is status post CABG. She presented to the ED yesterday via EMS and accompanied by her daughter with reports of left-sided chest discomfort. The chest pain was not exertional and did not resemble previous [place]. She reported that she awoke with the discomfort at 0600. She felt weak and fatigued. EMS was alerted and advised her to take a nitro. She received a total of 3 nitro prior to arriving at the hospital. She did not have pain on presentation to the ED. She had some discomfort on palpation of her left chest under her left breast. No rash noted at the time of presentation. Her troponins were trended and were less than 0.02 x3. She had an EKG which revealed NSR. Her chest x-ray did not show an acute process. Her creatinine was elevated but at her baseline at 1.14. Her BNP was only mildly elevated at 388. Otherwise, her labs were unremarkable. Given her history, she was admitted on observation overnight. The stress lab was not available and her symptoms had completely resolved by the following morning so she was discharged home with a stress test scheduled for the following Tuesday (05/15/18). Of note, she did have a urinalysis that showed small leukocytes and few bacteria, she denied any urinary symptoms, a culture was not obtained as it appeared to be squamous contamination. Alice also notes that she has had a significant amount of loss in her life over the past year. She has attended 6 funerals in the last year, several have been family members. She acknowledges that she may benefit from a therapist, BHS, counselor to help her work through her feelings and grief. She was not ready to make an appointment at the time of discharge. She would like to discuss this with her PCP for recommendations prior to scheduling an appointment. She is discharged home in good condition today. She is no longer experiencing any chest discomfort. She will return on Tuesday05/15/18, in 3 days for her stress test. She is advised to resume taking Aspirin 81 mg daily and continue her usual medications. She will follow up with her PCP as scheduled. Home Meds and New Rx's Prescriptions: New aspirin 81 mg tablet,delayed release (DR/EC) 81 mg PO DAILY Qty: 30 RF: 0 omeprazole 20 mg capsule,delayed release(DR/EC) 20 mg PO DAILY Qty: 30 RF: 0 Continue fluticasone-salmeterol [Advair Diskus] 1 EACH blister with device 1 puff Inhalation BID Qty: 1 RF: 12 furosemide 40 MG tablet 40 mg PO DAILY Qty: 90 RF: 3 isosorbide dinitrate 30 MG tablet 30 mg PO DAILY Qty: 90 RF: 3 losartan 100 MG tablet 100 mg PO DAILY Qty: 90 RF: 3 gabapentin 100 MG capsule 100 mg PO HS PRNQty: 30 RF: 0 nystatin 100,000 unit/gram cream 1 applic TP TID PRN (Reason: Groin fungal rash) Qty: 30 RF: 3 metoprolol tartrate 50 MG tablet 50 mg PO BID RF: 0 pravastatin 20 MG tablet 20 mg PO DAILY RF: 0 Discharge Instructions Instructions: Chest Pain (DC) Additional Instructions: Continue to take your medications as usual. Start taking Aspirin 81 mg daily. Start taking Omeprazole to protect the lining of your stomach also. Return to [facility] on Tuesday05/15/18 at 8:30 am for your stress test. Follow the instructions for the procedure. Follow up with your PCP as scheduled. Consider seeing a therapist or behavioral health specialist, you have been through a lot! Take care! Stand Alone Forms: Nursing Discharge Form Referrals: Tameka Kilgore NP [Primary Care Provider] - 05/23/18 1:30 pm Activity:: Activity as Tolerated Equipment/Supplies:: No Equipment Needed Diet:: Heart Healthy Discharge Orders Discharge Orders: Discharge Order (Routine); Ordered 05/12/18 Ordered By: Radha Farooq Exam Narrative Exam Narrative: General: she is awake and alert, pleasant and cooperative. Sitting up in the chair. HEENT: normocehpalic, atraumatic. Pupils are equal and round. Mucous membranes are moist. Neck: supple, no JVD. Respiratory: respirations even and unlabored. Lung sounds clear to auscultation throughout. Cardiovascular: heart has regular rate and rhythm, normal S1 & S2, no murmur, gallop or rub. Nontachycardic. Abdomen: soft, nontender on palpation, non-distended, no masses appreciated, normoactive bowel sounds. Extremities: well perfused without clubbing, cyanosis or edema. DS: Data Vitals/I&O Vitals and I&O: Vital Signs Temperature 37.0 C 05/12/18 11:18 Temperature Source Temporal Artery Scan 05/12/18 11:18 Pulse 51 L 05/12/18 11:18 Pulse Rhythm Regular 05/12/18 08:10 Pulse 62 05/11/18 17:40 Respiratory Rate 18 05/12/18 11:18 Respiratory Effort 05/12/18 08:10 Respiratory Depth Normal 05/12/18 08:10 Respiratory Pattern Normal 05/12/18 08:10 Blood Pressure 138/76 05/12/18 11:18 Blood Pressure Mean 81 05/11/18 17:31 Pulse Oximetry 96 05/12/18 11:18 Oxygen Delivery Method Room Air 05/12/18 11:18 Oxygen Flow Rate 0 05/12/18 11:18 Pain Level 0 05/11/18 19:16 Intake & Output 05/11/18 05/12/18 05/12/18 23:59 11:59 23:59 Intake Total 570 / 570 240 / 240 Output Total 450 / 450 450 / 450 Balance -450 / -450 120 / 120 240 / 240 Weight 75 kg 78.5 kg Intake: IV Oral 560 / 560 240 / 240 Output: Urine 450 / 450 450 / 450 Other: Urine Color Yellow Yellow Urine Appearance Clear Clear Urine Odor Normal Comment patient voided large amount of urine, missed hat Voiding Methods Toilet Toilet Completed studies during hospitalization [Text1]: PA AND LATERAL CHEST: 05/11 The heart is not enlarged. There are mediastinal vascular clips consistent with previous CABG surgery. The lungs are clear. No pleural effusion seen. CONCLUSION: No evidence of acute disease. Labs on day of discharge: Labs from last 24 hours 05/11/18 05/11/18 18:38 16:50 D-Dimer 489 Troponin I < 0.02 PFSH Personal history of colonic polyps (Chronic 02/10/17) Old myocardial infarction (Chronic 02/10/17) Mixed hyperlipidemia (Chronic 02/10/17) Hypertensive chronic kidney disease with stage 1 through stage 4 chronic kidney disease, or unspecified chronic kidney disease (Chronic 02/10/17) Hypertension (Chronic 03/02/17) History of poliomyelitis (Chronic 02/10/17) Heme positive stool (Chronic) COPD (chronic obstructive pulmonary disease) (Chronic 02/10/17) Atherosclerotic heart disease of [place] coronary artery with other forms of angina pectoris (Chronic 02/10/17) Anemia (Chronic 02/10/17) Abnormal results of thyroid function studies (Chronic 02/10/17) Family History Mother Neoplasm Sister Essential hypertension Heart disease Grandparent Diabetes Myocardial infarction Brother Heart disease Daughter Myocardial infarction Ankle Surgery Coronary Artery 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) Cholecystectomy Tonsillectomy Presence of coronary angioplasty implant and graft (Chronic 02/10/17) Family History Mother Neoplasm Sister Essential hypertension Heart disease Grandparent Diabetes Myocardial infarction Brother Heart disease Daughter Myocardial infarction Medical History Personal history of colonic polyps (Chronic 02/10/17) Old myocardial infarction (Chronic 02/10/17) Mixed hyperlipidemia (Chronic 02/10/17) Hypertensive chronic kidney disease with stage 1 through stage 4 chronic kidney disease, or unspecified chronic kidney disease (Chronic 02/10/17) Hypertension (Chronic 03/02/17) History of poliomyelitis (Chronic 02/10/17) Heme positive stool (Chronic) COPD (chronic obstructive pulmonary disease) (Chronic 02/10/17) Atherosclerotic heart disease of [place] coronary artery with other forms of angina pectoris (Chronic 02/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) Anemia (Chronic 02/10/17) Abnormal results of thyroid function studies (02/10/17) Social History adopted: No foster care: No current occupational status: retired pets and animals: Yes (1) pets and animals: dog(s) Smoking/Tobacco Use Status: Former Tobacco Use how long ago did patient quit smokin+ years alcohol intake: current alcohol intake frequency: 0-2 drinks per day substance use type: does not use Surgical History Ankle Surgery Coronary Artery 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) Cholecystectomy Tonsillectomy Presence of coronary angioplasty implant and graft (Chronic 08/31/17) Social History adopted: No foster care: No current occupational status: retired pets and animals: Yes (1) pets and animals: dog(s) Smoking/Tobacco Use Status: Former Tobacco Use how long ago did patient quit smokin+ years alcohol intake: current alcohol intake frequency: 0-2 drinks per day substance use type: does not use History History 6 Para Hx # Term Pregnancies 6 Multiple births Hx # Pregnancies Ectopic pregnancies AB induced Hx Number of Living Children 5 AB spontaneous
--- NOTE | 2018-05-12 14:56 | DSE_ITS ---
Date of service: 05/12/18 Time of Service: 14:53 DS: Diagnosis Discharge Diagnosis (1) Atypical chest pain: Status: Acute Discharge Plan Disposition Patient Disposition: HOME Condition: Improving Discharge Details Reason For Visit: CHEST PAIN Admit Date/Time: 05/11/18 17:37 Admit Provider: Andres Lewis Attending Provider: Andres Lewis Primary Care Provider: Tameka Kilgore Hospital Course Hospital Course: Alice is a 78-year-old female with a past medical history significant for history of [place], hyperlipidemia, CKD, hypertension, poliomyelitis, COPD, anemia. Patient is status post CABG. She presented to the ED yesterday via EMS and accompanied by her daughter with reports of left-sided chest discomfort. The chest pain was not exertional and did not resemble previous [place]. She reported that she awoke with the discomfort at 0600. She felt weak and fatigued. EMS was alerted and advised her to take a nitro. She received a total of 3 nitro prior to arriving at the hospital. She did not have pain on presentation to the ED. She had some discomfort on palpation of her left chest under her left breast. No rash noted at the time of presentation. Her troponins were trended and were less than 0.02 x3. She had an EKG which revealed NSR. Her chest x-ray did not show an acute process. Her creatinine was elevated but at her baseline at 1.14. Her BNP was only mildly elevated at 388. Otherwise, her labs were unremarkable. Given her history, she was admitted on observation overnight. The stress lab was not available and her symptoms had completely resolved by the following morning so she was discharged home with a stress test scheduled for the following Tuesday (05/15/18). Of note, she did have a urinalysis that showed small leukocytes and few bacteria , she denied any urinary symptoms, a culture was not obtained as it appeared to be squamous contamination. Alice also notes that she has had a significant amount of loss in her life over the past year. She has attended 6 funerals in the last year, several have been family members. She acknowledges that she may benefit from a therapist, BHS , counselor to help her work through her feelings and grief. She was not ready to make an appointment at the time of discharge. She would like to discuss this with her PCP for recommendations prior to scheduling an appointment. She is discharged home in good condition today. She is no longer experiencing any chest discomfort. She will return on Tuesday05/15/18, in 3 days for her stress test. She is advised to resume taking Aspirin 81 mg daily and continue her usual medications. She will follow up with her PCP as scheduled. Home Meds and New Rx's Prescriptions: New aspirin 81 mg tablet,delayed release (DR/EC) 81 mg PO DAILY Qty: 30 RF: 0 omeprazole 20 mg capsule,delayed release(DR/EC) 20 mg PO DAILY Qty: 30 RF: 0 Continue fluticasone-salmeterol [Advair Diskus] 1 EACH blister with device 1 puff Inhalation BID Qty: 1 RF: 12 furosemide 40 MG tablet 40 mg PO DAILY Qty: 90 RF: 3 isosorbide dinitrate 30 MG tablet 30 mg PO DAILY Qty: 90 RF: 3 losartan 100 MG tablet 100 mg PO DAILY Qty: 90 RF: 3 gabapentin 100 MG capsule 100 mg PO HS PRNQty: 30 RF: 0 nystatin 100,000 unit/gram cream 1 applic TP TID PRN (Reason: Groin fungal rash) Qty: 30 RF: 3 metoprolol tartrate 50 MG tablet 50 mg PO BID RF: 0 pravastatin 20 MG tablet 20 mg PO DAILY RF: 0 Discharge Instructions Instructions: Chest Pain (DC) Additional Instructions: Continue to take your medications as usual. Start taking Aspirin 81 mg daily. Start taking Omeprazole to protect the lining of your stomach also. Return to [facility] on Tuesday05/15/18 at 8:30 am for your stress test. Follow the instructions for the procedure. Follow up with your PCP as scheduled. Consider seeing a therapist or behavioral health specialist, you have been through a lot! Take care! Stand Alone Forms: Nursing Discharge Form Referrals: Tameka Kilgore NP [Primary Care Provider] - 05/23/18 1:30 pm Activity:: Activity as Tolerated Equipment/Supplies:: No Equipment Needed Diet:: Heart Healthy Discharge Orders Discharge Orders: Discharge Order (Routine); Ordered 05/12/18 Ordered By: Radha Farooq Exam Narrative Exam Narrative: General: she is awake and alert, pleasant and cooperative. Sitting up in the chair. HEENT: normocehpalic, atraumatic. Pupils are equal and round. Mucous membranes are moist. Neck: supple, no JVD. Respiratory: respirations even and unlabored. Lung sounds clear to auscultation throughout. Cardiovascular: heart has regular rate and rhythm, normal S1 & S2, no murmur, gallop or rub. Nontachycardic. Abdomen: soft, nontender on palpation, non-distended, no masses appreciated, normoactive bowel sounds. Extremities: well perfused without clubbing, cyanosis or edema. DS: Data Vitals/I&O Vitals and I&O: Vital Signs Temperature 37.0 C 05/12/18 11:18 Temperature Source Temporal Artery Scan 05/12/18 11:18 Pulse 51 L 05/12/18 11:18 Pulse Rhythm Regular 05/12/18 08:10 Pulse 62 05/11/18 17:40 Respiratory Rate 18 05/12/18 11:18 Respiratory Effort 05/12/18 08:10 Respiratory Depth Normal 05/12/18 08:10 Respiratory Pattern Normal 05/12/18 08:10 Blood Pressure 138/76 05/12/18 11:18 Blood Pressure Mean 81 05/11/18 17:31 Pulse Oximetry 96 05/12/18 11:18 Oxygen Delivery Method Room Air 05/12/18 11:18 Oxygen Flow Rate 0 05/12/18 11:18 Pain Level 0 05/11/18 19:16 Intake & Output 05/11/18 05/12/18 05/12/18 23:59 11:59 23:59 Intake Total 570 / 570 240 / 240 Output Total 450 / 450 450 / 450 Balance -450 / -450 120 / 120 240 / 240 Weight 75 kg 78.5 kg Intake: IV Oral 560 / 560 240 / 240 Output: Urine 450 / 450 450 / 450 Other: Urine Color Yellow Yellow Urine Appearance Clear Clear Urine Odor Normal Comment patient voided large amount of urine, missed hat Voiding Methods Toilet Toilet Completed studies during hospitalization [Text1]: PA AND LATERAL CHEST: 05/11 The heart is not enlarged. There are mediastinal vascular clips consistent with previous CABG surgery. The lungs are clear. No pleural effusion seen. CONCLUSION: No evidence of acute disease. Labs on day of discharge: Labs from last 24 hours 05/11/18 05/11/18 18:38 16:50 D-Dimer 489 Troponin I < 0.02 PFSH Personal history of colonic polyps (Chronic 02/10/17) Old myocardial infarction (Chronic 02/10/17) Mixed hyperlipidemia (Chronic 02/10/17) Hypertensive chronic kidney disease with stage 1 through stage 4 chronic kidney disease, or unspecified chronic kidney disease (Chronic 02/10/17) Hypertension (Chronic 03/02/17) History of poliomyelitis (Chronic 02/10/17) Heme positive stool (Chronic) COPD (chronic obstructive pulmonary disease) (Chronic 02/10/17) Atherosclerotic heart disease of [place] coronary artery with other forms of angina pectoris (Chronic 02/10/17) Anemia (Chronic 02/10/17) Abnormal results of thyroid function studies (Chronic 02/10/17) Family History Mother Neoplasm Sister Essential hypertension Heart disease Grandparent Diabetes Myocardial infarction Brother Heart disease Daughter Myocardial infarction Ankle Surgery Coronary Artery 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) Cholecystectomy Tonsillectomy Presence of coronary angioplasty implant and graft (Chronic 02/10/17) Family History Mother Neoplasm Sister Essential hypertension Heart disease Grandparent Diabetes Myocardial infarction Brother Heart disease Daughter Myocardial infarction Medical History Personal history of colonic polyps (Chronic 02/10/17) Old myocardial infarction (Chronic 02/10/17) Mixed hyperlipidemia (Chronic 02/10/17) Hypertensive chronic kidney disease with stage 1 through stage 4 chronic kidney disease, or unspecified chronic kidney disease (Chronic 02/10/17) Hypertension (Chronic 03/02/17) History of poliomyelitis (Chronic 02/10/17) Heme positive stool (Chronic) COPD (chronic obstructive pulmonary disease) (Chronic 02/10/17) Atherosclerotic heart disease of [place] coronary artery with other forms of angina pectoris (Chronic 02/10/17) Anemia (Chronic 02/10/17) Abnormal results of thyroid function studies (02/10/17) Social History adopted: No foster care: No current occupational status: retired pets and animals: Yes (1) pets and animals: dog(s) Smoking/Tobacco Use Status: Former Tobacco Use how long ago did patient quit smokin+ years alcohol intake: current alcohol intake frequency: 0-2 drinks per day substance use type: does not use Surgical History Ankle Surgery Coronary Artery 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) Cholecystectomy Tonsillectomy Presence of coronary angioplasty implant and graft (Chronic 08/31/17) Social History adopted: No foster care: No current occupational status: retired pets and animals: Yes (1) pets and animals: dog(s) Smoking/Tobacco Use Status: Former Tobacco Use how long ago did patient quit smokin+ years alcohol intake: current alcohol intake frequency: 0-2 drinks per day substance use type: does not use History History 2 6 Para Hx # Term Pregnancies 6 Multiple births Hx # Pregnancies Ectopic pregnancies AB induced Hx Number of Living Children 5 AB spontaneous
== END 2018-05-12 16:06 | disposition home or self-care (01) ==
LOC: ER 17:47 → MS 19:07
PROVIDERS: Physician Assistant; Admitting Provider Internal Medicine; Emergency Provider Nurse Practitioner Family; PCP Nurse Practitioner; Visit Provider Internal Medicine
DX: R07.89 Other chest pain (principal); I25.2 Old myocardial infarction; N18.9 Chronic kidney disease, unspecified; I12.9 Hypertensive chronic kidney disease with stage 1 through stage 4 chronic kidney disease, or unspecified chronic kidney disease; J44.9 Chronic obstructive pulmonary disease, unspecified; Z95.1 Presence of aortocoronary bypass graft; F43.20 Adjustment disorder, unspecified
CPT/HCPCS: 36415; 80053; 93005; 99219; 99239; 99285; J1650; 71046; 81003; 81015; 83735; 83880; 84484; 85025; 85379; 85610; 85730; 93010; 99217; G0378; J3490

== ENCOUNTER 2018-05-15 00:18 | Outpatient (CLI) | payer MEDICARE, OTHER, MEDICAID, SELFPAY ==
--- NOTE | 2018-05-15 07:00 | MERGEMPI_ITS ---
*[facility]* *[facility]* [address] [place] [address] Myocardial Perfusion Imaging - SPECT Can protocol Date of study: 05/15/2018 *PATIENT PRESENTATION* Height: 158.8cm (62.5in) Blood Pressure: Weight: 77.3kg (170lb) BSA: 1.87m^2 Referring physician: Isma Lazo MD Ordering physician: Lj Lewis Impressions: - Abnormal study after pharmacologic stress. - Consider [facility] / cardiology evaluation. Summary: 1. Myocardial perfusion imaging: There is a moderate sized, moderately intense, partially reversible defect involving the anterior wall(s). This suggests moderate ischemia in the distribution of the left anterior descending coronary artery. There is a moderate sized, severely intense, fixed defect involving the inferolateral wall(s). This suggests moderate myocardial infarction and minimal ischemia in the distribution of the left circumflex coronary artery. There is a small sized, moderately intense, partially reversible defect involving the inferior wall(s). This suggests small ischemia in the distribution of the right coronary artery. Overall ischemia: moderate. 2. The calculated left ventricular ejection fraction after stress: 77%. No left ventricular regional motion abnormality. 3. Stress: The target heart rate was not achieved. Indication: R07.9. History: REASON FOR VISIT: LEFT SIDED CHEST DISCOMFORT ASSOCIATED WITH WEAKNESS AND FATIGUE. PT HAS A HISTORY OF [place], HYPERLIPIDEMIA, CKD, HTN, POLIOMYELITIS, COPD AND ANEMIA. PMH: COPD. Risk factors: Family history of coronary artery disease. Hypertension. Obesity. Dyslipidemia. ALLERGIES: TRIMETHOPRIM. SULFA. LATEX. TRAMADOL. MEDICATIONS: PRAVASTATIN 20 MG DAILY. OMEPRAZOLE 20 MG DAILY. NYSTATIN CREAM TOPICAL PRN. METOPROLOL TARTRATE 50 MG BID. LOSARTAN 100 MG DAILY. ISOSORBIDE DINITRATE 30 MG DAILY. GABAPENTIN 100 MG Q HS. FUROSEMIDE 40 MG DAILY. ADVAIR DISKUS 1 PUFF BID. ASPIRIN 81 MG DAILY. Imaging Technique: Protocol: Can protocol. Acquisition: Gated SPECT; 1 day - rest/stress. The patient was imaged in the supine position. Attenuation correction used. Isotope administration: - Rest. Tc[99m]-sestamibi. Dose: 10.1mCi. Injection time: 09:15 AM. Injection to stress time: 00:45. - Stress. Tc[99m]-sestamibi. Dose: 32mCi. Injection time: 10:45 AM. 1-2 min before end of exercise Baseline ECG: SINUS BRADYCARDIA. HR 59 BPM. Stress protocol: + +---+ + + !Stage !HR !BP (mmHg) !Comments ! + +---+ + + !Baseline supine !59 !162/84 (110)! ! + +---+ + + !Baseline standing !65 !172/89 (117)! ! + +---+ + + !Stage I; 1.7mph, !100!188/84 (119)!PT UNABLE TO REACH HER ! !10degrees; 3 min ! ! !TARGET HEART RATE. PT WAS ! ! ! ! !TRANSITIONED TO ! ! ! ! !PHARMACOLOGICAL STRESS ! ! ! ! !TESTING AT THIS TIME. ! + +---+ + + !Baseline !92 !194/102 ! ! ! ! !(133) ! ! + +---+ + + !1 min !96 !202/102 !Inject Regadenoson. ! ! ! !(135) ! ! + +---+ + + !3 min !89 !192/88 (123)! ! + +---+ + + !6 min !82 !168/84 (112)! ! + +---+ + + !1 min !---! !Inject Regadenoson. ! + +---+ + + * Stress results: Maximal heart rate during stress was 100bpm (70% of maximal predicted heart rate). The maximal predicted heart rate was 143bpm. The target heart rate was not achieved. The rate-pressure product for the peak heart rate and blood pressure was 67804bu Hg/min. Stress ECG: TREADMILL PORTION OF STRESS TEST ENDED IN 3 MINUTES & 49 SECONDS PER PT'S REQUEST DUE TO FATIGUE AND LEG WEAKNESS. NORMAL HEART RATE AND BLOOD PRESSURE RESPONSE TO EXERCISE STRESS TEST MAX HR = 100 % OF TARGET = 76 OCCASIONAL PVCs NO ANGINA APPROXIMATE METS ACHIEVED = 6.[address] SEGMENT CHANGES PT UNABLE TO REACH HER TARGET HEART RATE DUE TO FATIGUE AND LEG WEAKNESS, PT TRANSITIONED TO LEXISCAN STRESS TEST. LEXISCAN STRESS TEST ENDED IN 6 MINUTES AND 25 SECONDS. PT EXPERIENCED NO SIGINIFICANT SIDE EFFECTS FROM LEXISCAN INJECTION. NORMAL HEART RATE AND BLOOD PRESSURE RESPONSE TO LEXISCAN INJECTION. OCCASIONAL PVCs & PACs. NO ANGINA NO SIGNIFICANT ST SEGMENT CHANGES Myocardial perfusion: Imaging information: gated. There is a moderate sized, moderately intense, partially reversible defect involving the anterior wall(s). This suggests moderate ischemia in the distribution of the left anterior descending coronary artery. There is a moderate sized, severely intense, fixed defect involving the inferolateral wall(s). This suggests moderate myocardial infarction and minimal ischemia in the distribution of the left circumflex coronary artery. There is a small sized, moderately intense, partially reversible defect involving the inferior wall(s). This suggests small ischemia in the distribution of the right coronary artery. Overall ischemia: moderate. Ventricular Function (Wall Motion): The calculated left ventricular ejection fraction after stress: 77%. No left ventricular regional motion abnormality. Study data: Isma Lazo MD supervised and was readily available during the procedure. This study was interpreted by [facility]. Study status: Routine. Consent: The risks, benefits, and alternatives to the procedure were explained to the patient and informed consent was obtained. Procedure: Initial setup. A baseline ECG was recorded. Surface ECG leads and manual cuff blood pressure measurements were monitored. Heart sounds: Normal. Lung sounds: Normal. Treadmill exercise testing was performed using the Can protocol. Study completion: All catheters inserted during the procedure were removed. The patient tolerated the procedure well and was discharged from the lab. Discharge: The patient left the laboratory in stable condition. Birthdate: Patient birthdate: 1940. Sex: Gender: female. Study date: Study date: 05/15/2018. Study time: 07:00 AM. Electronically signed by Isma Lazo MD 05/15/2018 18:03
[2018-05-15] MEDS: Regadenoson 0.4 MG/5 ML SYR IVP (11:28)
== END 2018-05-15 00:38 ==
PROVIDERS: PCP Nurse Practitioner; Visit Provider Internal Medicine
DX: R07.9 Chest pain, unspecified (principal); R94.30 Abnormal result of cardiovascular function study, unspecified; E78.5 Hyperlipidemia, unspecified; I10 Essential (primary) hypertension; I25.10 Atherosclerotic heart disease of native coronary artery without angina pectoris; I25.2 Old myocardial infarction
CPT/HCPCS: 78452; 93016; 93018; 93017; J2785

== ENCOUNTER 2018-05-22 00:23 | Outpatient (CLI) | payer MEDICARE, OTHER, SELFPAY ==
--- NOTE | 2018-05-22 13:15 | DI.CTLCSR_ITS ---
SYMPTOMS/DIAGNOSIS: COPD, J44.9, FORMER SMOKER, Z87.[address] FOR LUNG CANCER SCREENING: Comparison is made with April,. There is a stable 3 mm area of nodularity in the anterior right middle lobe. A questionable 3 mm left lower lobe nodule is also unchanged. No new nodules are seen. Calcified nodules are again noted bilaterally. No infiltrate or effusion is seen. There is no evidence of adenopathy. Coronary artery and aortic calcifications are seen. There has been no change in the mild dilatation of the ascending aorta. A severely atrophic right kidney is seen. The patient appears to be status post left nephrectomy. IMPRESSION: Stable calcified and noncalcified pulmonary nodules of 3 mm. Continued annual low dose screening CT is recommended. Lung-RAD Category: 2- Benign Appearance/Behavior Lung- RAD Management of Findings: Continue annual LDCT screening in 12 months
== END 2018-05-22 00:43 ==
PROVIDERS: PCP Nurse Practitioner; Visit Provider Internal Medicine
DX: J44.9 Chronic obstructive pulmonary disease, unspecified (principal); Z87.891 Personal history of nicotine dependence; Z12.2 Encounter for screening for malignant neoplasm of respiratory organs; R91.8 Other nonspecific abnormal finding of lung field
CPT/HCPCS: G0297

== ENCOUNTER → 2018-05-31 09:02 | Outpatient (BNVA) | payer MEDICARE, OTHER, SELFPAY | PROVIDERS: PCP Nurse Practitioner; Visit Provider Student in an Organized Health Care Education/Training Program | DX: I25.810 Atherosclerosis of coronary artery bypass graft(s) without angina pectoris (principal); I10 Essential (primary) hypertension; R01.1 Cardiac murmur, unspecified; J44.9 Chronic obstructive pulmonary disease, unspecified; Z87.891 Personal history of nicotine dependence | CPT/HCPCS: 99214 ==

== ENCOUNTER 2018-06-29 00:25 | Outpatient (CLI) | payer MEDICARE, OTHER, SELFPAY ==
--- NOTE | 2018-06-29 12:20 | DI.US_ITS ---
SYMPTOMS/DIAGNOSIS: CAROTID BRUIT, SYMPTOMS/SIGNS INVOLVING THE CIRCULATORY AND RESPIRATORY SYSTEMS, R09.89 CAROTID ULTRASOUND: Routine examination was performed. No priors for comparison. On the right, there is calcific plaque scattered within the carotid bulb and proximal internal carotid artery. Velocity elevations seen in the internal carotid artery are consistent with 50-60% internal carotid artery stenosis. The right vertebral artery is antegrade. On the left, there is calcific plaque scattered in the common carotid artery, the carotid bulb and proximal internal carotid artery. No hemodynamically significant velocity elevations are present on the left. The left vertebral artery is antegrade. IMPRESSION: 1. A 50-60% right internal carotid artery stenosis. 2. No hemodynamically significant left internal carotid artery stenosis.
== END 2018-06-29 00:45 ==
PROVIDERS: PCP Nurse Practitioner; Visit Provider Student in an Organized Health Care Education/Training Program
DX: R09.89 Other specified symptoms and signs involving the circulatory and respiratory systems (principal); I65.21 Occlusion and stenosis of right carotid artery
CPT/HCPCS: 93880

== ENCOUNTER 2018-08-21 09:17 | Outpatient (CLI) | payer MEDICARE, OTHER, SELFPAY ==
[2018-08-21 11:28] LABS: Cholesterol 104 mg/dL (50-200); HDL Cholesterol 48 mg/dL (40-60); LDL CHOLESTEROL 43 mg/dL (<100); Triglyceride 63 mg/dL (30-150)
== END 2018-08-21 09:37 ==
PROVIDERS: PCP Nurse Practitioner; Visit Provider Student in an Organized Health Care Education/Training Program
DX: I25.10 Atherosclerotic heart disease of native coronary artery without angina pectoris (principal)
CPT/HCPCS: 36415; 80061; 83721

== ENCOUNTER → 2018-08-30 10:05 | Outpatient (BNVA) | payer MEDICARE, OTHER, SELFPAY | PROVIDERS: PCP Nurse Practitioner; Visit Provider Student in an Organized Health Care Education/Training Program | DX: I25.10 Atherosclerotic heart disease of native coronary artery without angina pectoris (principal); I10 Essential (primary) hypertension; I65.21 Occlusion and stenosis of right carotid artery; J44.9 Chronic obstructive pulmonary disease, unspecified; Z87.891 Personal history of nicotine dependence | CPT/HCPCS: 99214 ==

== ENCOUNTER 2019-02-13 09:23 | Outpatient (CLI) | payer MEDICARE, OTHER, SELFPAY ==
[2019-02-13 09:40] LABS: HCT 40.7 % (36.0-46.0); HGB 13.3 g/dL (12.0-15.5); Mean Corp. HGB Concentration 32.7 g/dL (32.0-36.0); Mean Corpuscular Hemoglobin 29.4 pg (27.0-33.0); Mean Platelet Volume 10.4 fL (8.0-11.0); Platelet Count 166 x1000/uL (130-400); RBC 4.52 m/cumm (4.00-5.20); RBC Distribution Width 13.9 % (11.7-14.6); White Blood Cell Count 3.92 k/cumm (4.4-10.8)
[2019-02-13 10:35] LABS: ALT 19 U/L (14-59); AST 16 U/L (15-37); Albumin 3.9 g/dL (3.4-5.0); Alkaline Phosphatase 79 U/L (46-116); Anion Gap 9.1 mmol/L (3-11); BUN 10 mg/dL (7-18); Bilirubin, Total 0.5 mg/dL (0.2-1.0); CO2 28.9 mmol/L (21.0-32.0); Calculated LDL 50 mg/dL; Chloride 107 mmol/L (98-107); Cholesterol 113 mg/dL (50-200); Estimated GFR 43.56 (mL/min/1.73m2); Glucose 89 mg/dL (70-100); HDL Cholesterol 50 mg/dL (40-60); Potassium 3.7 mmol/L (3.5-5.1); Sodium 145 mmol/L (136-145); Total Protein 7.1 g/dL (6.4-8.2); Triglyceride 65 mg/dL (30-150)
== END 2019-02-13 09:43 ==
PROVIDERS: PCP Nurse Practitioner; Visit Provider Nurse Practitioner
DX: I10 Essential (primary) hypertension (principal); E78.2 Mixed hyperlipidemia; I25.2 Old myocardial infarction
CPT/HCPCS: 36415; 80053; 80061; 85027

== ENCOUNTER 2021-10-26 10:56 | Emergency (ER) | payer MEDICARE, SELFPAY ==
[2021-10-26 11:02] VITALS: BP 118/69; PULSE 85; RESP 17; TEMP 36.1; O2SAT 94
--- NOTE | 2021-11-02 07:53 | W.ED.FU ---
Follow Up Plan: I was notified by nursing staff the patient left the waiting room before being seen after being notified of wait times.
== END 2021-10-26 14:01 ==
LOC: ER 11:20
PROVIDERS: Emergency Provider Student in an Organized Health Care Education/Training Program; PCP Nurse Practitioner
DX: Z53.21 Procedure and treatment not carried out due to patient leaving prior to being seen by health care provider (principal)

== ENCOUNTER 2022-01-05 03:45 | Emergency (ER) | payer MEDICARE, MEDICAID, SELFPAY ==
[2022-01-05] VITALS (43 sets, daily range): BP systolic 161–189; BP diastolic 87–142; PULSE 63–105; RESP 13–31; TEMP 36.4; O2SAT 94–98
--- NOTE | 2022-01-05 03:30 | RT.EKG_ITS ---
APPROVED REPORT Exam: Resting ECG Reason for Exam: rapid heart rate Patient Location: E HR:89 bpm ECG Measurements Heart Rate 89 AXIS LA [id number] P [id number] QRSd 91 QRS 54 QT 380 T 33 QTc 464 Conclusion Atrial fibrillation...V-rate 77- 96, irreg A-activity PHysician: no stemi, stable
--- NOTE | 2022-01-05 03:45 | DI.RAD_ITS ---
Exam(s) XR PORTABLE CHEST AP EXAM: XR PORTABLE CHEST AP CLINICAL HISTORY: sob, afib TECHNIQUE: 2D digital imaging was performed of the chest. One image was obtained. An AP view was ob tained. COMPARISON: CR XR CHEST 2V PA LATERAL from 05/11/2018 FINDINGS: MEDIASTINUM: Normal. HEART: Normal. Findings of a prior CABG. PULMONARY VASCULATURE: Normal. LUNGS: No focal consolidating infiltrates are seen. Diffuse mild interstitial markings are present w hich are likely chronic. PLEURAL SPACE: No pleural effusion or pneumothorax. BONE:Within normal limits for the patient's age. OTHER FINDINGS:Normal. IMPRESSION: No acute pulmonary findings. DATA REPOSITORY: RADIATION DOSE DELIVERED:
--- NOTE | 2022-01-05 03:56 | W.ED.GENAD ---
Discharge Plan Disposition Patient Disposition: HOME Condition: Good Discharge Details Clinical Impression: Atrial fibrillation with RVR Primary Care Provider: Tameka Kilgore ED Provider: Marquise Marion Home Meds and New Rx's Prescriptions: New metoprolol tartrate 50 mg tablet 50 mg PO BID 14 Days Qty: 28 0RF No Action rosuvastatin 10 mg tablet 10 mg PO DAILY albuterol sulfate 90 mcg/actuation aerosol powdr breath activated 2 inh IH Q6H PRN (Reason: shortness of breath or wheezing) Qty: 1 6RF nitroglycerin 0.4 mg tablet, sublingual 0.4 mg SL Q5-15M PRN (Reason: chest pain) Qty: 100 6RF Rx Instructions: as a single dose; administer 5-10 minutes before situation known to precipitate angina attack fluticasone propion-salmeterol [Advair Diskus] 250-50 mcg/dose blister with device 1 inh Inhalation BID Qty: 1 12RF metoprolol tartrate 50 mg tablet 50 mg PO BID Qty: 180 3RF furosemide 40 mg tablet 40 mg PO DAILY Qty: 90 3RF isosorbide dinitrate 30 mg tablet 30 mg PO DAILY Qty: 90 3RF losartan 100 mg tablet 100 mg PO BID Discharge Instructions Additional Instructions: At this time. Atrial fibrillation with its rapid rate has resolved. Please continue taking your regular medications. Please drink plenty of fluids to stay well-hydrated. 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 If you notice any worsening of your symptoms, or any new symptoms such as vomiting, diarrhea, fever, chills, shortness of breath, chest pain, numbness, weakness, or fainting , please return immediately to the emergency department for reevaluation. Please follow up with your primary care provider as soon as possible for reassessment and reevaluation. As always, it was a pleasure participating in your medical care today. Referrals: Tameka Kilgore, NADIA [Primary Care Provider] - Medical Decision Making This is an 81-year-old female with a past medical history of a CABG 12 years ago, hypertension, COPD, cholecystectomy, high cholesterol, A. fib, currently on Eliquis, who presents today for evaluation of shortness of breath. Patient states that at 1 AM she got up to go to the bathroom, and after micturating went back to her bed, and then while in bed noticed palpitations, and mild chest heaviness and a central chest pressure. She took a nitroglycerin and this slightly relieved the pressure. She contacted EMS, and was brought in for further evaluation. Heart rate per EMS upon their arrival was in the 120s to 130s. Blood pressure was hypertensive. She was given 325 of aspirin. She is brought to the ER. Currently the patient states that the chest pressure is notably improved. She denies any current chest pain. She denies any current shortness of breath. She states that this is happened once before in her life many years ago. She denies missing any medications or missing any doses of her meds. No other complaints at this time. No other modifying factors. Of note the patient denies any chest pain, chest pressure or shortness of breath when she was going up and down the stairs prior to the palpitations coming on after going to the bathroom. Exam demonstrates a very well-appearing female, no pitting edema of the lower extremities. Limited bedside echo demonstrates atrial fibrillation, ejection fraction appears slightly reduced, probably around 35 to 40%. Mucous membranes slightly moist. Patient denies any chest pain at this time. Patient is in A. fib with a rapid ventricular response. No evidence of STEMI. We will give 5 mg of IV metoprolol, gently rehydrate, evaluate for other concerning potential etiologies that could have caused this, monitor closely and reassess 7:56 AM Patient's laboratory work-up is returned unremarkable, initial and repeat troponin are normal. Patient notably stable, her thyroid function is stable. Patient's heart rate well controlled. It is now come to our attention that the patient has been out of her metoprolol for the last few days because of her recent move up here from [place]. This is likely why she went into A. fib. We will give her a temporary prescription for the next 2 weeks, however she states that her normal meds are coming up. We will also give her a dose of her metoprolol here before she leaves and pill for home for this evening. I have extensively reviewed the treatment plan and discharge instructions with the patient and their family. I have addressed all patient concerns at this time. The patient and family was made aware of what symptoms to monitor for that would warrant a return to the emergency department. Discussed the plan with the patient and family, they demonstrate verbal understanding and agreement with our assessment and plan at this time. The documentation in this chart was dictated using [employer] dictation software. Please excuse any dictation errors. HPI General Date/Time Provider Initiated Documentation: 01/05/22 03:53. HPI Narrative: This is an 81-year-old female with a past medical history of a CABG 12 years ago, hypertension, COPD, cholecystectomy, high cholesterol, A. fib, currently on Eliquis, who presents today for evaluation of shortness of breath. Patient states that at 1 AM she got up to go to the bathroom, and after micturating went back to her bed, and then while in bed noticed palpitations, and mild chest heaviness and a central chest pressure. She took a nitroglycerin and this slightly relieved the pressure. She contacted EMS, and was brought in for further evaluation. Heart rate per EMS upon their arrival was in the 120s to 130s. Blood pressure was hypertensive. She was given 325 of aspirin. She is brought to the ER. Currently the patient states that the chest pressure is notably improved. She denies any current chest pain. She denies any current shortness of breath. She states that this is happened once before in her life many years ago. She denies missing any medications or missing any doses of her meds. No other complaints at this time. No other modifying factors. Of note the patient denies any chest pain, chest pressure or shortness of breath when she was going up and down the stairs prior to the palpitations coming on after going to the bathroom. Related Data Home Medications Medication Instructions Recorded Confirmed albuterol sulfate 90 mcg/actuation 2 inh inhalation Q6H PRN shortness 02/21/19 01/05/22 breath activated powder inhaler of breath or wheezing #1 ea fluticasone 250 mcg-salmeterol 50 1 inh inhalation BID #1 inh 05/24/19 01/05/22 mcg/dose blistr powdr for inhalation (Advair Diskus) metoprolol tartrate 50 mg tablet 50 mg PO BID #180 tabs 07/19/19 01/05/22 nitroglycerin 0.4 mg sublingual 0.4 mg sublingual Q5-15M PRN chest 08/22/19 01/05/22 tablet pain #100 tabs furosemide 40 mg tablet 40 mg PO DAILY #90 tabs 10/01/19 01/05/22 isosorbide dinitrate 30 mg tablet 30 mg PO DAILY #90 tabs 10/01/19 01/05/22 losartan 100 mg tablet 100 mg PO BID 10/26/21 01/05/22 rosuvastatin 10 mg tablet 10 mg PO DAILY 10/26/21 01/05/22 metoprolol tartrate 50 mg tablet 50 mg PO BID 14 days #28 tabs 01/05/22 Previous Rx's Medication Instructions Recorded albuterol sulfate 90 mcg/actuation 2 inh inhalation Q6H PRN shortness 02/21/19 breath activated powder inhaler of breath or wheezing #1 ea fluticasone 250 mcg-salmeterol 50 1 inh inhalation BID #1 inh 05/24/19 mcg/dose blistr powdr for inhalation (Advair Diskus) metoprolol tartrate 50 mg tablet 50 mg PO BID #180 tabs 07/19/19 nitroglycerin 0.4 mg sublingual 0.4 mg sublingual Q5-15M PRN chest 08/22/19 tablet pain #100 tabs furosemide 40 mg tablet 40 mg PO DAILY #90 tabs 10/01/19 isosorbide dinitrate 30 mg tablet 30 mg PO DAILY #90 tabs 10/01/19 metoprolol tartrate 50 mg tablet 50 mg PO BID 14 days #28 tabs 01/05/22 Allergies Allergy/AdvReac Type Severity Reaction Status Date / Time trimethoprim Allergy Intermediate Verified 01/05/22 04:11 Sulfa (Sulfonamide Allergy Mild Verified 01/05/22 04:11 Antibiotics) latex Allergy Skin Rash Verified 01/05/22 04:11 tramadol AdvReac Mild Nausea Verified 01/05/22 04:11 General ABNER: 4 Review of Systems All systems reviewed & are unremarkable except as noted in HPI and below PFSH All Active Problems (Updated 01/05/22 @ 07:44 by Marquise Marion DO) Atrial fibrillation with RVR (Acute) Rash (Acute) Lyme disease (Acute) COPD exacerbation (Acute) HTN (hypertension) with goal to be determined (Acute) Tobacco dependence syndrome (Acute 02/11/17) Atypical chest pain (Acute) Presence of coronary angioplasty implant and graft (Chronic 02/10/17) Personal history of colonic polyps (Chronic 02/10/17) Old myocardial infarction (Chronic 02/10/17) Mixed hyperlipidemia (Chronic 02/10/17) Hypertensive chronic kidney disease with stage 1 through stage 4 chronic kidney disease, or unspecified chronic kidney disease (Chronic 02/10/17) Hypertension (Chronic 03/02/17) History of poliomyelitis (Chronic 02/10/17) age 8, left sided hemiplegia resolved, 16 wk hospitalization Heme positive stool (Chronic) place on PPI, No endoscopy COPD (chronic obstructive pulmonary disease) (Chronic 02/10/17) Atherosclerotic heart disease of [place] coronary artery with other forms of angina pectoris (Chronic 02/10/17) Anemia (Chronic 02/10/17) Abnormal results of thyroid function studies (Chronic 02/10/17) Family History Mother Neoplasm Lung Sister Essential hypertension Heart disease Grandparent Diabetes Myocardial infarction Brother Heart disease Daughter Myocardial infarction Social History Smoking/Tobacco Use Status: Never Tobacco: How many years used: 15 Smoking risk assessment performed?: Yes Alcohol Intake: current Alcohol Intake frequency: 0-2 drinks per day Drug use: Never Substance use type: does not use Adopted: No Foster care: No Housing: apartment Pets and animals: Yes (1-radha dog) Pets and animals: dog(s) What type of physical activity do you participate in: none Do you feel safe at home: Yes Do you feel safe in your relationship?: Yes History History 6 Para Hx # Term Pregnancies 6 Multiple births Hx # Pregnancies Ectopic pregnancies AB induced Hx Number of Living Children 5 AB spontaneous Exam Narrative Exam Narrative: 1.Const: Well-nourished, Well-developed, appearing stated age 2.Eyes: PERRL, no conjunctival injection, and symmetrical lids. 3.ENT: Atraumatic external nose and ears. Moist MM. Neck: Symmetric, trachea midline, No thyromegaly. 4.CVS: +S1/S2, No murmurs or gallops. Peripheral pulses 2+ and equal in all extremities. Brisk capillary refill in all extremities. 5.RESP: Unlabored respiratory effort. Clear to auscultation bilaterally. No wheezes rales or rhonchi 6.GI: Soft, Nontender/Nondistended, No hepatosplenomegaly. No guarding or rebound. 7.MSK: Normocephalic/Atraumatic, Extremities w/o deformity or ttp No cyanosis or clubbing, Normal movement of all extremities 8.Skin: Warm, Dry. No rashes or lesions. 9.Neuro: senior research fellow II-XII grossly intact. Sensation grossly intact, no focal neurologic deficits. 10.Psych: (AAO) x3. Appropriate mood and affect Critical Care Time Critical Care Time Critical Care Time: Yes Total Critical Care Time: 30 Attestation: Upon my evaluation, this patient had a high probability of imminent or life-threatening deterioration, which required my direct attention, intervention, and personal management. I have personally provided 30 minutes of critical care time exclusive of time spent on separately billable procedures. Time includes review of laboratory data, radiology results, discussion with consultants, and monitoring for potential decompensation. Interventions were performed as documented.
[2022-01-05 04:06] LABS: Abs Immature Grans 0.01 10^3/uL (0.0-0.06); Absolute Basophil Count 0.01 10^3/uL (0.0-0.2); Absolute Eosinophil Count 0.12 10^3/uL (0.0-0.7); Absolute Monocyte Count 0.44 10^3/uL (0.1-0.8); Absolute Neutrophil Count 3.19 10^3/uL (1.2-6.7); Basophils % 0.2; Eosinophils % 2.3; HCT 41.9 % (36.0-46.0); HGB 13.7 g/dL (11.2-15.7); Immature Grans % 0.2; Lymphocytes % 28.5; MCH 29.5 pg (27.0-33.0); MCHC 32.7 % (32.0-36.0); MCV 90 fL (80-95); MPV 10.8 fL (8.0-11.0); Monocytes % 8.3; Neutrophils % 60.5; Platelet Count 169 10^3/uL (130-400); RBC 4.65 10^6/uL (3.93-5.22); RDW 13.7 % (11.7-14.6); RDW-SD 45.1 fL; WBC 5.27 10^3/uL (4.4-10.8)
[2022-01-05 04:21] LABS: INR 1.1 (0.9-1.1); PTT Activated 31.7 sec (21.0-27.5)
[2022-01-05] MEDS: Normal Saline 500 ML IV (04:26)
[2022-01-05] MEDS: Metoprolol 5 MG/5 ML VIAL IVP (04:26)
[2022-01-05 04:31] LABS: ALT 17 U/L (14-59); AST 22 U/L (15-37); Alkaline Phosphatase 68 U/L (46-116); BUN 12 mg/dL (7-18); Bilirubin, Total 0.6 mg/dL (0.2-1.0); CREATININE 1.1 mg/dL (0.55-1.02); Calcium 9.6 mg/dL (8.5-10.1); Chloride 108 mmol/L (98-107); Estimated GFR 47.79 (mL/min/1.73m2); Glucose 108 mg/dL (74-106); Potassium 4.1 mmol/L (3.5-5.1); Sodium 144 mmol/L (136-145); TSH (W/Ref FT4) 6.89 uIU/mL (0.36-3.74); Total Protein 7.5 g/dL (6.4-8.2); Troponin I < 50 ng/L (<or=60)
[2022-01-05 04:43] LABS: Source Nasal/Nares
[2022-01-05 04:51] LABS: FREE T4 0.95 ng/dL (0.76-1.46); NT-proBNP 1858 pg/mL (<300)
[2022-01-05 05:34] LABS: COVID-19 PCR Negative (Negative)
--- NOTE | 2022-01-05 06:46 | DI.VRAD_ITS ---
PROCEDURE INFORMATION: Exam: XR Chest Exam date and time: 01/05/2022 4:22 AM Age: 81 years old Clinical indication: Shortness of breath and other: SOB, afib TECHNIQUE: Imaging protocol: Radiologic exam of the chest. Views: 1 view. COMPARISON: CT CHEST LUNG CANCER SCREEN 05/22/2018 1:03 PM FINDINGS: Tubes, catheters and devices: Monitoring electrodes with attached wires. Lungs: Calcified granuloma in the right mid lung. Mild interstitial prominence may reflect chronic lung changes. No definite infiltrates or consolidations in the lungs. Pleural spaces: No significant pleural effusions. No pneumothorax. Heart/Mediastinum: Sternotomy wires and mediastinal clips consistent with CABG procedure. Vasculature: Aortic arch atherosclerotic calcifications. Bones/joints: No acute abnormalities. Bones/joints IMPRESSION: No definite infiltrates or consolidations in the lungs. Dictated and Authenticated by: Rene Bravo MD. Ordering:CARROLL Camarillo MD
[2022-01-05 07:39] LABS: Troponin I < 50 ng/L (<or=60)
== END 2022-01-05 08:09 | disposition home or self-care (01) ==
PROVIDERS: Emergency Provider Student in an Organized Health Care Education/Training Program; PCP Nurse Practitioner
DX: I48.91 Unspecified atrial fibrillation (principal); I10 Essential (primary) hypertension; J44.9 Chronic obstructive pulmonary disease, unspecified; Z20.822 Contact with and (suspected) exposure to COVID-19; Z79.01 Long term (current) use of anticoagulants; Z79.51 Long term (current) use of inhaled steroids; E78.00 Pure hypercholesterolemia, unspecified; Z95.1 Presence of aortocoronary bypass graft
CPT/HCPCS: 36415; 80053; 87635; 93005; 96361; 96374; 99291; 71045; 83880; 84439; 84443; 84484; 85025; 85610; 85730; 93010

== ENCOUNTER 2022-03-28 14:36 | Emergency (ER) | payer MEDICARE, SELFPAY ==
[2022-03-28 14:41] VITALS: BP 158/82; PULSE 75; RESP 18; TEMP 36.7; O2SAT 93
--- NOTE | 2022-03-28 15:45 | DI.RAD_ITS ---
Exam(s) XR CHEST 2V PA LATERAL EXAM: XR CHEST 2V PA LATERAL CLINICAL HISTORY: dyspnea, crackles TECHNIQUE: 2D digital imaging was performed of the chest. Images were obtained. PA and lateral v iews were obtained. COMPARISON: CR,XR XR PORTABLE CHEST AP from 01/05/2022 FINDINGS: MEDIASTINUM: Normal. HEART: Normal. PULMONARY VASCULATURE: Normal. LUNGS: Clear. PLEURAL SPACE: No pleural effusion or pneumothorax. BONE:Within normal limits for the patient's age. Sternal wires are in place. OTHER FINDINGS:Normal. IMPRESSION: No acute pulmonary findings. DATA REPOSITORY: RADIATION DOSE DELIVERED:
--- NOTE | 2022-03-28 15:45 | RT.EKG_ITS ---
APPROVED REPORT Exam: Resting ECG Reason for Exam: dyspnea Patient Location: E HR:70 bpm ECG Measurements Heart Rate 70 AXIS MT 178 P 0 QRSd 83 QRS 55 QT 414 T 30 QTc 446 Conclusion Unknown rhythm, irregular rate...V-rate 55- 97, variation>10% Low voltage, extremity leads...all extremity leads <0.5mV afib, normal rate, normal axis, non ischemic
--- NOTE | 2022-03-28 15:52 | W.ED.GENAD ---
Discharge Plan Disposition Patient Disposition: HOME Condition: Stable Discharge Details Clinical Impression: Acute dyspnea, CHF (congestive heart failure) Primary Care Provider: Tameka Kilgore ED Provider: Sara Nava Home Meds and New Rx's Prescriptions: New furosemide [Lasix] 20 mg tablet 20 mg PO DAILY Qty: 14 0RF Combivent Respimat 20-100 mcg/actuation mist 1 puff inhalation Q6H Qty: 4 0RF Continued fluticasone furoate-vilanterol [Breo Ellipta] 100-25 mcg/dose blister with device 1 inh inhalation DAILY apixaban 5 mg tablet 5 mg PO BID Qty: 180 3RF losartan 100 mg tablet 100 mg PO DAILY Qty: 90 3RF metoprolol tartrate 50 mg tablet 50 mg PO BID Qty: 180 3RF rosuvastatin 10 mg tablet 10 mg PO DAILY Qty: 90 3RF nitroglycerin 0.4 mg tablet, sublingual 0.4 mg SL Q5-15M PRN (Reason: chest pain) Qty: 100 6RF Rx Instructions: as a single dose; administer 5-10 minutes before situation known to precipitate angina attack albuterol sulfate 90 mcg/actuation aerosol powdr breath activated 2 inh IH Q6H PRN (Reason: shortness of breath or wheezing) Qty: 1 12RF azithromycin [Zithromax] 250 mg tablet 250 mg PO DAILY Rx Instructions: Take 2 tablets by mouth single dose today, then take 1 tablet by mouth daily for the next 4 days. Discharge Instructions Instructions: Heart Failure (ED), Dyspnea (ED) Additional Instructions: Recommend outpatient echocardiogram of your heart, this has been ordered Take the Lasix 20 mg daily Use the Combivent as needed It is very important that you see your PCP this week, I am placing you on the follow-up list, please let your doctor know that you have been started on Lasix Please return earlier should you have chest pain, worsening shortness of breath or persistent shortness of breath despite taking Lasix, or with any new or worsening complaints Please also call cardiology to follow-up Referrals: Marbella Ghosh MD [ [facility] STAFF PHYSICIAN] - 1 day Tameka Kilgore SPOUTER [Primary Care Provider] - 1 day Discharge Data Discharge Date/Time-TO BE ENTERED AT DEPARTURE: 03/28/22 18:44 Medical Decision Making Chest x-ray does not show acute abnormality per radiology interpretation my review EKG shows atrial fibrillation without evidence of acute ischemia Received a dose of IV Lasix, and mild symptomatic improvement I did consider pulmonary embolism, patient is anticoagulated and appropriately taking her Eliquis Given her elevated BNP, crackles throughout bases, gradual worsening of symptoms, I suspect this is CHF An outpatient echocardiogram has been ordered She is mildly dyspneic upon exertion but not hypoxic and stable for a diuretic trial outpatient with close outpatient reassessment Referral to cardiology Given low threshold to return should she have new or worsening complaints Troponin negative but symptoms persistent but only slightly worsening over the course of the past Medical Records Medical records reviewed: Yes I reviewed the patient's medical records. Lab Data Lab results reviewed: Yes I reviewed the patient's lab results. ECG Data Prior ECG tracings: available for review HPI General Date/Time Provider Initiated Documentation: 03/28/22 14:51. HPI Narrative: This 81-year-old female with history of cardiac bypass, atrial fibrillation, chronic anticoagulation on Eliquis, hypertension, hyperlipidemia, COPD presents with report of gradually worsening shortness of breath over the course of the past month. Denies any fever or chills. Denies any new cough, weight gain, peripheral edema. Denies any orthopnea. Has been using her COPD medications as prescribed. Denies history of CHF. Symptoms exacerbated with exertion reportedly. Denies recent flights, surgeries, long drives, history of coagulopathy. Has been taking her Eliquis as prescribed. Related Data Home Medications Medication Instructions Recorded Confirmed azithromycin 250 mg tablet 250 mg PO DAILY 01/27/22 (Zithromax) albuterol sulfate 90 mcg/actuation 2 inh inhalation Q6H PRN shortness 01/28/22 01/28/22 breath activated powder inhaler of breath or wheezing #1 ea apixaban 5 mg tablet 5 mg PO BID #180 tabs 01/28/22 01/28/22 fluticasone furoate 100 1 inh inhalation DAILY 01/28/22 mcg-vilanterol 25 mcg/dose inhalation powder (Breo Ellipta) losartan 100 mg tablet 100 mg PO DAILY #90 tabs 01/28/22 01/28/22 metoprolol tartrate 50 mg tablet 50 mg PO BID #180 tabs 01/28/22 01/28/22 nitroglycerin 0.4 mg sublingual 0.4 mg sublingual Q5-15M PRN chest 01/28/22 01/28/22 tablet pain #100 tabs rosuvastatin 10 mg tablet 10 mg PO DAILY #90 tabs 01/28/22 01/28/22 furosemide 20 mg tablet (Lasix) 20 mg PO DAILY #14 tabs 03/28/22 ipratropium 20 mcg-albuterol 100 1 puff inhalation Q6H #4 grams 03/28/22 mcg/actuation mist for inhalation (Combivent Respimat) Previous Rx's Medication Instructions Recorded albuterol sulfate 90 mcg/actuation 2 inh inhalation Q6H PRN shortness 01/28/22 breath activated powder inhaler of breath or wheezing #1 ea apixaban 5 mg tablet 5 mg PO BID #180 tabs 01/28/22 losartan 100 mg tablet 100 mg PO DAILY #90 tabs 01/28/22 metoprolol tartrate 50 mg tablet 50 mg PO BID #180 tabs 01/28/22 nitroglycerin 0.4 mg sublingual 0.4 mg sublingual Q5-15M PRN chest 01/28/22 tablet pain #100 tabs rosuvastatin 10 mg tablet 10 mg PO DAILY #90 tabs 01/28/22 furosemide 20 mg tablet (Lasix) 20 mg PO DAILY #14 tabs 03/28/22 ipratropium 20 mcg-albuterol 100 1 puff inhalation Q6H #4 grams 03/28/22 mcg/actuation mist for inhalation (Combivent Respimat) Allergies Allergy/AdvReac Type Severity Reaction Status Date / Time trimethoprim Allergy Intermediate Verified 01/28/22 15:25 Sulfa (Sulfonamide Allergy Mild Verified 01/28/22 15:25 Antibiotics) latex Allergy Skin Rash Verified 01/28/22 15:25 tramadol AdvReac Mild Nausea Verified 01/28/22 15:25 General Stated Complaint: RespSymp ABNER: 3 Review of Systems All systems reviewed & are unremarkable except as noted in HPI and below PFSH All Active Problems (Updated 03/28/22 @ 18:30 by TRESA Forrest) Acute dyspnea (Acute) CHF (congestive heart failure) (Chronic) Anticoagulant long-term use (Acute) Chronic kidney disease, stage 3a (Acute) Ectopic kidney (Acute) LEFT Atrial fibrillation (Chronic) Rash (Acute) Lyme disease (Acute) COPD exacerbation (Acute) HTN (hypertension) with goal to be determined (Acute) Tobacco dependence syndrome (Acute 02/11/17) Atypical chest pain (Acute) Presence of coronary angioplasty implant and graft (Chronic 02/10/17) Personal history of colonic polyps (Chronic 02/10/17) Old myocardial infarction (Chronic 02/10/17) Mixed hyperlipidemia (Chronic 02/10/17) Hypertensive chronic kidney disease with stage 1 through stage 4 chronic kidney disease, or unspecified chronic kidney disease (Chronic 02/10/17) Hypertension (Chronic 03/02/17) History of poliomyelitis (Chronic 02/10/17) age 8, left sided hemiplegia resolved, 16 wk hospitalization Heme positive stool (Chronic) place on PPI, No endoscopy COPD (chronic obstructive pulmonary disease) (Chronic 02/10/17) 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/10/17) Anemia (Chronic 02/10/17) Abnormal results of thyroid function studies (Chronic 02/10/17) Medical History (Updated 03/28/22 @ 18:30 by TRESA Forrest) Atelectasis of both lungs Hx of myocardial infarction Surgical History (Updated 03/04/22 @ 17:43 by Elizabeth Castro LPN) Hx of heart bypass surgery Family History Mother Neoplasm Lung Sister Essential hypertension Heart disease Grandparent Diabetes Myocardial infarction Brother Heart disease Daughter Myocardial infarction Social History Smoking/Tobacco Use Status: Never Tobacco: How many years used: 15 Smoking risk assessment performed?: Yes Alcohol Intake: current Alcohol Intake frequency: 0-2 drinks per day Drug use: Never Substance use type: does not use Adopted: No Foster care: No Housing: apartment Pets and animals: Yes (1-radha dog) Pets and animals: dog(s) What type of physical activity do you participate in: none Do you feel safe at home: Yes Do you feel safe in your relationship?: Yes History History 6 Para Hx # Term Pregnancies 6 Multiple births Hx # Pregnancies Ectopic pregnancies AB induced Hx Number of Living Children 5 AB spontaneous Exam Const General: cooperative, comfortable and no acute distress Orientation: alert and oriented x3 Chest Chest: normal inspection of the chest Resp Effort & Inspection: normal respiratory effort Other: Crackles noted to bilateral lung Cardio Rate: regular rate Rhythm: abnormal rhythm Heart Sounds: no murmurs GI Inspection: normal to inspection Skin General skin exam: no rashes or lesions noted Neuro General: patient alert and patient oriented x3 Extrem General: normal to inspection Course Vital Signs Vital signs: Vital Signs Temperature 36.7 C 03/28/22 14:41 Pulse 75 03/28/22 14:41 Respiratory Rate 18 03/28/22 14:41 Blood Pressure 158/82 H 03/28/22 14:41 Pulse Oximetry 93 03/28/22 14:41 Temperature 36.7 C 03/28/22 14:41 Temperature Source Tympanic 03/28/22 14:41 Pulse 75 03/28/22 14:41 Respiratory Rate 18 03/28/22 14:41 Respiratory Effort 03/28/22 14:43 Blood Pressure 158/82 H 03/28/22 14:41 Blood Pressure Position Supine 03/28/22 14:41 Pulse Oximetry 93 03/28/22 14:41 Oxygen Delivery Method Room Air 03/28/22 14:41 Oxygen Flow Rate 0 03/28/22 14:41 Pain Level 0 03/28/22 14:41
[2022-03-28 16:18] LABS: Source Nasal/Nares
[2022-03-28 16:23] LABS: Abs Immature Grans 0.02 10^3/uL (0.0-0.06); Absolute Basophil Count 0.01 10^3/uL (0.0-0.2); Absolute Lymphocyte Count 1.04 10^3/uL (1.2-3.4); Absolute Monocyte Count 0.42 10^3/uL (0.1-0.8); Absolute Neutrophil Count 2.79 10^3/uL (1.2-6.7); Basophils % 0.2; Eosinophils % 4.5; HCT 39.6 % (36.0-46.0); HGB 12.7 g/dL (11.2-15.7); Immature Grans % 0.4; Lymphocytes % 23.2; MCH 29.4 pg (27.0-33.0); MCHC 32.1 % (32.0-36.0); MCV 92 fL (80-95); MPV 10.6 fL (8.0-11.0); Monocytes % 9.4; Neutrophils % 62.3; Platelet Count 171 10^3/uL (130-400); RBC 4.32 10^6/uL (3.93-5.22); RDW 13.3 % (11.7-14.6); RDW-SD 44.7 fL; WBC 4.48 10^3/uL (4.4-10.8)
[2022-03-28 16:44] LABS: ALT 16 U/L (14-59); AST 15 U/L (15-37); Albumin 3.9 g/dL (3.4-5.0); Alkaline Phosphatase 74 U/L (46-116); Anion Gap 7.9 mmol/L (3-11); BUN 13 mg/dL (7-18); Bilirubin, Total 0.5 mg/dL (0.2-1.0); CO2 30.1 mmol/L (21.0-32.0); Calcium 9.2 mg/dL (8.5-10.1); Chloride 110 mmol/L (98-107); Estimated GFR 56.95 (mL/min/1.73m2); Glucose 76 mg/dL (74-106); NT-proBNP 2456 pg/mL (<300); Sodium 148 mmol/L (136-145); Total Protein 7.4 g/dL (6.4-8.2); Troponin I < 50 ng/L (<or=60)
[2022-03-28 17:00] LABS: COVID-19 PCR Negative (Negative)
--- NOTE | 2022-03-28 18:08 | DI.VRAD_ITS ---
PROCEDURE INFORMATION: Exam: XR Chest Exam date and time: 03/28/2022 5:30 PM Age: 81 years old Clinical indication: Dyspnea; Crackles; Prior surgery; date: 6+ months: Open heart TECHNIQUE: Imaging protocol: Radiologic exam of the chest. Views: 2 views. COMPARISON: XR PORTABLE CHEST AP 01/05/2022 4:22 AM FINDINGS: Lungs: No alveolar infiltrate. Pleural spaces: No pleural fluid collection. No pneumothorax. Heart/Mediastinum: Normal heart size. Vasculature: Calcific thoracic aorta. Bones/joints: Prior median sternotomy. IMPRESSION: No active pulmonary disease. Dictated and Authenticated by: Jose Daniel Segal MD. Ordering:BILLIE Ruiz MD
[2022-03-28 18:12] VITALS: RESP 4
[2022-03-28] MEDS: Albuterol/Ipratropium 3 ML UPD VIAL (18:12)
--- NOTE | 2022-03-28 18:28 | NUR.NOTE ---
Nursing Note: Request for Echocardiogram faxed to [facility] for dyspnea and crackles, SONA, and to follow up w/PCP. Referral faxed to PCP for dyspnea, SONA. Noted that the request for echo was faxed to [facility].
[2022-03-28] MEDS: Furosemide 40 MG/4 ML VIAL IVP (18:31)
== END 2022-03-28 18:44 | disposition home or self-care (01) ==
PROVIDERS: Emergency Provider Physician Assistant; PCP Nurse Practitioner
DX: I11.0 Hypertensive heart disease with heart failure (principal); I50.9 Heart failure, unspecified; I48.91 Unspecified atrial fibrillation; J44.9 Chronic obstructive pulmonary disease, unspecified; I25.2 Old myocardial infarction; R79.89 Other specified abnormal findings of blood chemistry; Z86.711 Personal history of pulmonary embolism; Z79.52 Long term (current) use of systemic steroids; Z79.01 Long term (current) use of anticoagulants; Z20.822 Contact with and (suspected) exposure to COVID-19
CPT/HCPCS: 36415; 80053; 87635; 93005; 96374; 99284; 99285; 71046; 83880; 84484; 85025; 93010; J1940; J7620

== ENCOUNTER 2022-03-29 12:16 | Outpatient (CLI) | payer MEDICARE, MEDICAID, SELFPAY ==
--- NOTE | 2022-03-29 13:00 | DI.US_ITS ---
APPROVED REPORT EXAM: Comprehensive 2D, Doppler, and color-flow Echocardiogram Patient Location: Out-Patient [facility] [employer] Br[employer] Cutter: Tia Saenz RDCS (AE) Indications: Dyspnea, Crackles ( H/O CHF, A Fib, CABG) Other Information Study Quality: Adequate Conclusion Normal left ventricular wall thickness and chamber size. Estimated ejection fraction is 55%. Wall m otion is normal Normal right ventricular size and systolic function The right atrium is mildly dilated. The left atrium is moderately dilated The aortic valve is mildly sclerotic and trileaflet without stenosis or regurgitation Mild mitral annular calcification. There is severe mitral regurgitation Normal tricuspid valve with moderate regurgitation. Estimated right ventricular systolic pressure is 38 mmHg Dilated ascending aorta measuring 4.14 cm Wall motion Left Ventricle The left ventricle is normal size. The overall left ventricular systolic function appears normal. The re is normal left ventricular wall thickness. There is normal LV segmental wall motion. There is no v entricular septal defect visualized. LVEF is 55%. Right Ventricle Right ventricle is grossly normal in size. Right ventricular systolic function is grossly normal. The RVSP is 38.0 mmHg. Atria Left atrium is moderately dilated. Right atrium is mildly dilated. The interatrial septum is intact w ith no evidence for an atrial septal defect. Aortic Valve The Aortic valve is mildly sclerotic. Aortic valve is trileaflet. There is no aortic valvular stenosi s. No aortic regurgitation is present. Mitral Valve Mild mitral annular calcification. No evidence of mitral valve stenosis. severe mitral regurgitation Tricuspid Valve The tricuspid valve is normal in structure. There is no tricuspid valve stenosis. Moderate tricuspid regurgitation. Pulmonic Valve The pulmonary valve is normal in structure. There is no pulmonic valvular stenosis. Trace pulmonic re gurgitation. Great Vessels The aortic root is normal in size. The ascending aorta is moderately dilated. Aortic arch is not well visualized. The IVC collapses <50% with inspiration. Pericardium There is no pericardial effusion. 2D Dimensions IVSD d PLAX 0.99 cm F: 0.6-1.0 LV Vol A2C d MOD 59.2 mL LVPW d PLAX 1.01 cm F: 0.6 - 1.0 LV Vol A4C d MOD 74.7 mL LVID d PLAX 4.54 cm F: 3.8 - 5.2 LA vol/ BSA A2C s A-L 28.5 mL/m2 LVDs 3.35 cm F: 2.2 - 3.5 LA vol/ BSA A4C s A-L 36.9 mL/m2 Ao Root d 2.83 cm F: 2.7 - 3.3 LA Vol/ BSA Biplane s A-L 33.6 mL/m2 RA Area A4C 17.38 cm2 LA Area A4C s MOD 20.96 cm2 RA Vol/ BSA A4C s A-L 29.6 mL/m2 LA Area A2C s MOD 17.80 cm2 Ao Asc Diam d 4.14 cm F: 2.3 - 3.1 LV EF A4C MOD 51.0 % LV EF Teichholz 51.2 % LV EF A2C MOD 55.9 % LVEF (Ógmez's) 54.47 % F: 54 - 74 LV EF Biplane MOD 54.5 % LV Volume 53.05 mL F: 46 - 106 SV 37.04 mL LV Volume Index 29.80 mL/m2 F: 29 - 61 SV Index 20.76 mL/m2 LV Vol Biplane MOD 68.0 mL FS 26.00 % M-Mode TAPSE 0.88 cm (M/F) >1.7 LV Diastology MV E' lateral 0.077 (>0.1 m/s) E/A Ratio 3.0 LV E/e LAT 15.50 (<14) MV E Vmax 1.20 (0.4-1.3 m/s) MV E/E' lateral 15.53 MV A Vmax 0.40 (0.4-1.3 m/s) MV E/A Ratio 2.88 Aortic Valve LVOT Area 2.97 cm2 AoV Area Vmax 2.09 cm2 LVOT Vmax 0.90 m/s AoV Area/ BSA (Vmax) 1.17 cm2/m2 LVOT Mean Carlton. 0.58 m/s KENYA Mean [place]. 2.04 cm2 LVOT Peak Grad 3.3 mmHg KENYA Mean [place]. Index 1.14 cm2/m2 LVOT Mean Grad 1.6 mmHg LVOT VTI 0.181 m LVOT Diam s 1.90 cm AoV Vmax 1.28 m/s Velocity Ratio 0.70 AoV Mean Carlton. 0.85 m/s AoV Peak Grad 6.6 mmHg LVOT SV 53.87 mL AoV Mean Grad 3.3 mmHg AoV VTI 0.203 m AoV Area VTI 2.65 cm2 AoV Area/ BSA (VTI) 1.49 cm/m2 Mitral Valve MV DT 167 (160-240 msec) MR Vmax 4.89 m/s MV PHT 48 msec MR VTI 1.529 m MV Area PHT 4.55 cm2 MR Peak Grad 95.6 mmHg MV VTI 0.317 m MR Mean Grad 62.7 mmHg MV VTI Annulus 0.330 m MR PISA Radius 0.49 cm MV Area VTI 1.77 (4.0-6.0 cm2) MR EROA 0.11 cm2 MR Aliasing Velocity 0.35 m/s MR PISA 1.52 cm2 Pulmonary Valve PV Vmax 0.81 (0.5-1.5 m/s) RVOT Peak Gr. 1.44 mmHg PV Peak Grad 2.7 mmHg RVOT Mean Gr. 0.75 mmHg PV Mean Grad 1.2 mmHg RVOT VTI 0.131 m PV VTI 0.149 m RVOT Vmax 0.60 m/s Tricuspid Valve TR Peak Grad 29.9 mmHg TR Vmax 2.74 m/s RA Pressure 8.00 mmHg RVSP (TR) 38.0 mmHg
== END 2022-03-29 12:36 ==
PROVIDERS: PCP Nurse Practitioner; Visit Provider Physician Assistant
DX: R06.09 Other forms of dyspnea (principal); R09.89 Other specified symptoms and signs involving the circulatory and respiratory systems; I50.9 Heart failure, unspecified; I48.91 Unspecified atrial fibrillation; I35.8 Other nonrheumatic aortic valve disorders; I34.0 Nonrheumatic mitral (valve) insufficiency; Z95.1 Presence of aortocoronary bypass graft
CPT/HCPCS: 93306

== ENCOUNTER 2022-04-01 18:05 | Outpatient (REF) | payer MEDICARE, SELFPAY ==
[2022-04-01 18:34] LABS: Anion Gap 6.7 mmol/L (3-11); BUN 17 mg/dL (7-18); CO2 32.3 mmol/L (21.0-32.0); Calcium 9.6 mg/dL (8.5-10.1); Chloride 107 mmol/L (98-107); Estimated GFR 56.95 (mL/min/1.73m2); Glucose 89 mg/dL (74-106); Potassium 3.8 mmol/L (3.5-5.1); Sodium 146 mmol/L (136-145)
== END 2022-04-01 18:06 | disposition home or self-care (01) ==
LOC: LBN 18:05
PROVIDERS: PCP Nurse Practitioner; Visit Provider Nurse Practitioner
DX: I50.9 Heart failure, unspecified (principal)
CPT/HCPCS: 80048

== ENCOUNTER 2022-04-13 13:19 | Outpatient (CLI) | payer MEDICARE, SELFPAY ==
--- NOTE | 2022-04-13 13:15 | RT.EKG_ITS ---
APPROVED REPORT Exam: Resting ECG Reason for Exam: A marilin Patient Location: O HR:67 bpm ECG Measurements Heart Rate 67 AXIS DC [id number] P [id number] QRSd 114 QRS 56 QT 420 T 28 QTc 444 Conclusion Atrial fibrillation...V-rate 59- 72, irreg A-activity Borderline intraventricular conduction delay...QRSd >112mS Low voltage, extremity leads...all extremity leads <0.5mV
== END 2022-04-13 13:20 | disposition home or self-care (01) ==
LOC: DI.CARD 13:20
PROVIDERS: PCP Nurse Practitioner; Visit Provider Internal Medicine Cardiovascular Disease
DX: I48.91 Unspecified atrial fibrillation (principal)
CPT/HCPCS: 93010

== ENCOUNTER → 2022-04-13 13:19 | Outpatient (BNVA) | payer MEDICARE, MEDICAID, SELFPAY | PROVIDERS: PCP Nurse Practitioner; Referring Provider Nurse Practitioner; Visit Provider Internal Medicine Cardiovascular Disease | DX: I11.0 Hypertensive heart disease with heart failure (principal); Z95.5 Presence of coronary angioplasty implant and graft; Z79.01 Long term (current) use of anticoagulants; I48.91 Unspecified atrial fibrillation; I50.9 Heart failure, unspecified; I34.0 Nonrheumatic mitral (valve) insufficiency | CPT/HCPCS: 93005; 99203; 99214 ==

== ENCOUNTER 2022-06-25 13:54 | Emergency (ER) | payer MEDICARE, MEDICAID, SELFPAY ==
--- NOTE | 2022-06-25 13:45 | RT.EKG_ITS ---
APPROVED REPORT Exam: Resting ECG Reason for Exam: SOB Patient Location: E HR:88 bpm ECG Measurements Heart Rate 88 AXIS [place] [id number] P [id number] QRSd 90 QRS 68 QT 383 T 16 QTc 464 Conclusion Atrial fibrillation...V-rate 77-114, irreg A-activity Low voltage, extremity leads...all extremity leads <0.5mV Normal [place] No acute ST changes There are no significant changes compared to prior EKG performed on 04/13/2022 at 12:22.
[2022-06-25 13:59] VITALS: BP 152/76; PULSE 93; RESP 22; TEMP 36.8; O2SAT 96
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
--- NOTE | 2022-06-25 15:15 | DI.RAD_ITS ---
Exam(s) XR CHEST 2V PA LATERAL EXAM: XR CHEST 2V PA LATERAL CLINICAL HISTORY: SOB, cough TECHNIQUE: 2D digital imaging was performed of the chest. Two images were obtained. PA and lateral views were obtained. COMPARISON: CR,XR XR CHEST 2V PA LATERAL from 03/28/2022 FINDINGS: MEDIASTINUM: Normal. HEART: Mild cardiomegaly. PULMONARY VASCULATURE: Normal. LUNGS: No focal consolidations are present. PLEURAL SPACE: No pleural effusion or pneumothorax. BONE:Within normal limits for the patient's age. Sternal wires are in place. OTHER FINDINGS:Normal. IMPRESSION: No acute pulmonary findings. DATA REPOSITORY: RADIATION DOSE DELIVERED:
[2022-06-25 15:19] VITALS: RESP 18
[2022-06-25 15:45] LABS: Abs Immature Grans 0.01 10^3/uL (0.0-0.06); Absolute Eosinophil Count 0.11 10^3/uL (0.0-0.7); Absolute Monocyte Count 0.28 10^3/uL (0.1-0.8); Absolute Neutrophil Count 2.16 10^3/uL (1.2-6.7); Eosinophils % 3.2; HCT 40.8 % (36.0-46.0); HGB 13.4 g/dL (11.2-15.7); Immature Grans % 0.3; MCH 28.9 pg (27.0-33.0); MCHC 32.8 % (32.0-36.0); MCV 88 fL (80-95); MPV 10.9 fL (8.0-11.0); Monocytes % 8.1; Neutrophils % 62.4; Platelet Count 148 10^3/uL (130-400); RBC 4.63 10^6/uL (3.93-5.22); RDW 13.8 % (11.7-14.6); RDW-SD 44.6 fL; WBC 3.46 10^3/uL (4.4-10.8)
[2022-06-25 16:16] LABS: ALT 16 U/L (14-59); AST 24 U/L (15-37); Albumin 4.1 g/dL (3.4-5.0); Alkaline Phosphatase 78 U/L (46-116); Anion Gap 6.7 mmol/L (3-11); BUN 16 mg/dL (7-18); Bilirubin, Total 0.5 mg/dL (0.2-1.0); CO2 30.3 mmol/L (21.0-32.0); Calcium 9.2 mg/dL (8.5-10.1); Chloride 104 mmol/L (98-107); Glucose 97 mg/dL (74-106); Potassium 3.8 mmol/L (3.5-5.1); Sodium 141 mmol/L (136-145); Total Protein 7.8 g/dL (6.4-8.2); Troponin I < 50 ng/L (<or=60)
[2022-06-25 16:28] LABS: COVID-19 PCR Negative (Negative); Influenza A PCR Negative (Negative); Influenza B PCR Negative (Negative); RSV PCR Negative (Negative)
[2022-06-25 16:31] LABS: Source Nasopharynx
[2022-06-25 17:20] VITALS: PULSE 90; RESP 18; RESP 5; O2SAT 92
[2022-06-25] MEDS: predniSONE 20 MG TAB 60 MG PO (17:20)
[2022-06-25] MEDS: Albuterol/Ipratropium 3 ML UPD VIAL UPD (17:20)
[2022-06-25] MEDS: Azithromycin 250 MG TAB 500 MG PO (18:24)
[2022-06-25 18:32] VITALS: BP 133/77; PULSE 106; RESP 18; O2SAT 90
[2022-06-25 18:34] VITALS: O2SAT 93
== END 2022-06-25 18:35 | disposition home or self-care (01) ==
PROVIDERS: Emergency Provider Emergency Medicine; PCP Nurse Practitioner
DX: J44.1 Chronic obstructive pulmonary disease with (acute) exacerbation (principal); I13.0 Hypertensive heart and chronic kidney disease with heart failure and stage 1 through stage 4 chronic kidney disease, or unspecified chronic kidney disease; I50.9 Heart failure, unspecified; N18.31 Chronic kidney disease, stage 3a; Z20.822 Contact with and (suspected) exposure to COVID-19
CPT/HCPCS: 36415; 80053; 87637; 93005; 99284; 99285; 71046; 83735; 84484; 85025; 93010; J7512; J7620

== ENCOUNTER → 2022-06-28 10:46 | Outpatient (BNVA) | payer MEDICARE, MEDICAID, SELFPAY | PROVIDERS: PCP Nurse Practitioner; Referring Provider Nurse Practitioner; Visit Provider Internal Medicine Cardiovascular Disease | DX: I48.91 Unspecified atrial fibrillation (principal); I50.9 Heart failure, unspecified; I25.118 Atherosclerotic heart disease of native coronary artery with other forms of angina pectoris | CPT/HCPCS: 99214 ==

== ENCOUNTER 2022-07-31 11:34 | Emergency (ER) | payer MEDICARE, MEDICAID, SELFPAY ==
[2022-07-31] VITALS (62 sets, daily range): BP systolic 130–167; BP diastolic 58–120; PULSE 70–100; RESP 22–30; TEMP 36.6; O2SAT 86–100
--- NOTE | 2022-07-31 12:00 | DI.RAD_ITS ---
Exam(s) XR PELVIS AP XR FEMUR RT EXAM: XR PELVIS AP CLINICAL HISTORY: fall, pain. TECHNIQUE: 2D digital imaging was performed. COMPARISON: CR,XR XR FEMUR RT from 07/31/2022 FINDINGS: BONES: Nondisplaced intertrochanteric fracture right femoral neck. No bony destructive lesion is see n. JOINTS: No dislocation present. No joint space narrowing is present. SOFT TISSUE: Vascular calcifications IMPRESSION: Intertrochanteric fracture right femur DATA REPOSITORY: RADIATION DOSE DELIVERED:
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
--- NOTE | 2022-07-31 12:30 | DI.CT_ITS ---
Exam(s) CT PELVIC WO EXAM: CT PELVIC WO CLINICAL HISTORY: pain. TECHNIQUE: Imaging Protocol: Axial computed tomography images with coronal and sagittal reformatted images were created and reviewed. CONTRAST MATERIAL: Oral: no COMPARISON: CR,XR XR FEMUR RT from 07/31/2022 CR,XR XR PELVIS AP from 07/31/2022 FINDINGS: Bladder: Symmetric distention, no gross wall thickening. Bowel: No obstruction or bowel wall thickening. Peritoneal cavity: No ascites, collection or mesenteric inflammatory response. Bones: Nondisplaced intertrochanteric fracture right femur. No additional fractures. SI joints in act. Soft tissues: Left pelvic kidney. Vascular calcifications. IMPRESSION: Nondisplaced intertrochanteric fracture right femur. RADIATION DOSE DELIVERED: 763.86mGy.cmTotal DLP DATA REPOSITORY: All CT scans at this facility are submitted to the National Radiology Data Registry (NRDR) Dose Index Registry (DIR) with the [employer] (ACR). RADIATION OPTIMIZATION: All CT scans at this facility use at least one of these dose optimization te chniques: automated exposure control; mA and/or kV adjustment per patient size (includes targeted exa ms where dose is matched to clinical indication); or iterative reconstruction.
--- NOTE | 2022-07-31 12:53 | DI.VRAD_ITS ---
Addendum created by Chun Gaspar MD on 07/31/2022 1:15:03 PM EST: Correction: There is a nondisplaced fracture in the intertrochanteric region of the right hip Initial report created on 07/31/2022 12:51:55 PM EST: PROCEDURE INFORMATION: Exam: XR Pelvis Exam date and time: 07/31/2022 12:25 PM Age: 82 years old Clinical indication: Injury or trauma; Fall; Blunt trauma (contusions or hematomas); Right; Hip TECHNIQUE: Imaging protocol: Radiologic exam of the pelvis. Views: 1 or 2 view. COMPARISON: No relevant prior studies available. FINDINGS: Bones/joints: Degenerative changes in both hips and lumbar spine and sacroiliac joints. There is no evidence of acute fracture.There is no evidence of malalignment or dislocation. Soft tissues: Unremarkable. IMPRESSION: There is no evidence of acute fracture.There is no evidence of malalignment or dislocation. Dictated and Authenticated by: Chun Gaspar MD. Ordering:NAYLA Summers MD
--- NOTE | 2022-07-31 12:53 | DI.VRAD_ITS ---
Addendum created by Chun Gaspar MD on 07/31/2022 1:13:52 PM EST: Correction there is a nondisplaced fracture of the intertrochanteric region of the right hip Initial report created on 07/31/2022 12:53:04 PM EST: PROCEDURE INFORMATION: Exam: XR Right Femur Exam date and time: 07/31/2022 12:29 PM Age: 82 years old Clinical indication: Injury or trauma; Fall; Blunt trauma; Thigh or upper leg; Right TECHNIQUE: Imaging protocol: Radiologic exam of the Right femur. Views: 2 views. COMPARISON: CR XR PELVIS AP 07/31/2022 12:25 PM FINDINGS: Bones/joints: No definite fracture.. Soft tissues: Unremarkable. IMPRESSION: No definite fracture.. Dictated and Authenticated by: Chun Gaspar MD. Ordering:NAYLA Summers MD
--- NOTE | 2022-07-31 13:16 | DI.VRAD_ITS ---
PROCEDURE INFORMATION: Exam: CT Pelvis Without Contrast; Skeletal Exam date and time: 07/31/2022 12:52 PM Age: 82 years old Clinical indication: Injury or trauma; Fall; Fracture of pelvis \T\ hip; Right; Traumatic fracture; Neck of femur, base; Closed fracture TECHNIQUE: Imaging protocol: Computed tomography of the pelvis without contrast. Exam focused on the skeleton. COMPARISON: CR XR PELVIS AP 07/31/2022 12:25 PM FINDINGS: Kidneys and ureters: There is 1 pelvic kidney Appendix: Normal appendix Bones/joints: Nondisplaced fracture of the intertrochanteric region of the right hip series 4, image 69-72. Soft tissues: Unremarkable. IMPRESSION: Nondisplaced fracture of the intertrochanteric region of the right hip series 4, image 69-72. Dictated and Authenticated by: Chun Gaspar MD. Ordering:NAYLA Summers MD
[2022-07-31 13:21] LABS: Abs Immature Grans 0.04 10^3/uL (0.0-0.06); Absolute Basophil Count 0.01 10^3/uL (0.0-0.2); Absolute Lymphocyte Count 0.77 10^3/uL (1.2-3.4); Absolute Monocyte Count 0.28 10^3/uL (0.1-0.8); Absolute Neutrophil Count 3.03 10^3/uL (1.2-6.7); Basophils % 0.2; Eosinophils % 2.4; HCT 41.5 % (36.0-46.0); HGB 13.3 g/dL (11.2-15.7); Immature Grans % 0.9; Lymphocytes % 18.2; MCH 28.6 pg (27.0-33.0); MCV 89 fL (80-95); MPV 10.9 fL (8.0-11.0); Monocytes % 6.6; Neutrophils % 71.7; Platelet Count 176 10^3/uL (130-400); RBC 4.65 10^6/uL (3.93-5.22); RDW 13.8 % (11.7-14.6); RDW-SD 45.2 fL; WBC 4.23 10^3/uL (4.4-10.8)
[2022-07-31 13:30] LABS: Anion Gap 7.4 mmol/L (3-11); BUN 12 mg/dL (7-18); CO2 30.6 mmol/L (21.0-32.0); CREATININE 1.2 mg/dL (0.55-1.02); Calcium 9.5 mg/dL (8.5-10.1); Chloride 106 mmol/L (98-107); Estimated GFR 45.48 (mL/min/1.73m2); Glucose 96 mg/dL (74-106); Potassium 3.8 mmol/L (3.5-5.1); Sodium 144 mmol/L (136-145)
[2022-07-31 13:46] LABS: Source Nasal/Nares
--- NOTE | 2022-07-31 13:51 | ANES_ITS ---
Date of service: 07/31/22 Time of Service: 13:51 Anesthesia Note Report Anesthesia Note: Consulted by the ED Physician to discuss Alice for possible surgical repair of her hip fracture. My main concern is her most recent echo on 03/29/22 showing severe MR as well as moderate TR, although with a preserved EF of 55%. She also has significant right internal carotid stenosis (2019), Stage 3a CKD, seizure history, ascending aortic aneurysm at 4cm, history of DVT/PE, and a previous PR history with 5 vessel CABG in 2011. After [place] our [place] as [place] [facility] [place], I feel Alice is best served to have her anesthesia at a larger hospital with more resources.
[2022-07-31 14:18] LABS: COVID-19 PCR Negative (Negative)
[2022-07-31] MEDS: Ketorolac 15 MG/ML VIAL IVP (15:00)
[2022-07-31] MEDS: Albuterol 2.5 MG/3 ML INH SOLN VIAL UPD (15:01)
[2022-07-31] MEDS: Ketorolac 15 MG/ML VIAL (19:43)
== END 2022-07-31 19:45 | disposition short-term general hospital (02) ==
PROVIDERS: Emergency Provider Student in an Organized Health Care Education/Training Program; PCP Nurse Practitioner
DX: S72.141A Displaced intertrochanteric fracture of right femur, initial encounter for closed fracture (principal); R09.02 Hypoxemia; I25.10 Atherosclerotic heart disease of native coronary artery without angina pectoris; I48.91 Unspecified atrial fibrillation; I13.0 Hypertensive heart and chronic kidney disease with heart failure and stage 1 through stage 4 chronic kidney disease, or unspecified chronic kidney disease; I50.9 Heart failure, unspecified; N18.4 Chronic kidney disease, stage 4 (severe); J44.1 Chronic obstructive pulmonary disease with (acute) exacerbation; Z79.01 Long term (current) use of anticoagulants; Z79.51 Long term (current) use of inhaled steroids; Z20.822 Contact with and (suspected) exposure to COVID-19; W00.0XXA Fall on same level due to ice and snow, initial encounter; Y93.89 Activity, other specified
CPT/HCPCS: 51702; 73552; 80048; 87635; 96372; 96374; 99285; 72170; 72192; 85025; J1885; J7613

== ENCOUNTER 2022-08-16 08:13 | Outpatient (REF) | payer MEDICARE, MEDICAID, SELFPAY ==
[2022-08-16 11:39] LABS: Abs Immature Grans 0.01 10^3/uL (0.0-0.06); Absolute Basophil Count 0.01 10^3/uL (0.0-0.2); Absolute Eosinophil Count 0.19 10^3/uL (0.0-0.7); Absolute Lymphocyte Count 0.93 10^3/uL (1.2-3.4); Absolute Neutrophil Count 2.25 10^3/uL (1.2-6.7); Basophils % 0.3; HCT 32.5 % (36.0-46.0); HGB 10.4 g/dL (11.2-15.7); Immature Grans % 0.3; Lymphocytes % 24.5; MCH 30.1 pg (27.0-33.0); MCV 94 fL (80-95); MPV 10.4 fL (8.0-11.0); Monocytes % 10.6; Neutrophils % 59.3; Platelet Count 239 10^3/uL (130-400); RBC 3.46 10^6/uL (3.93-5.22); RDW 16.1 % (11.7-14.6); RDW-SD 54.9 fL; WBC 3.79 10^3/uL (4.4-10.8)
[2022-08-16 11:50] LABS: Anion Gap 8.4 mmol/L (3-11); BUN 20 mg/dL (7-18); CO2 28.6 mmol/L (21.0-32.0); CREATININE 1.1 mg/dL (0.55-1.02); Calcium 9.2 mg/dL (8.5-10.1); Chloride 109 mmol/L (98-107); Estimated GFR 50.48 (mL/min/1.73m2); Glucose 90 mg/dL (74-106); Potassium 3.5 mmol/L (3.5-5.1); Sodium 146 mmol/L (136-145)
== END 2022-08-16 08:14 | disposition home or self-care (01) ==
LOC: LBN 08:13
PROVIDERS: PCP Nurse Practitioner; Visit Provider Family Medicine
DX: I50.9 Heart failure, unspecified (principal); N18.4 Chronic kidney disease, stage 4 (severe); I10 Essential (primary) hypertension
CPT/HCPCS: 80048; 85025

== ENCOUNTER 2022-08-20 12:57 | Outpatient (CLI) | payer MEDICARE, MEDICAID, SELFPAY ==
--- NOTE | 2022-08-20 16:18 | DI.RAD_ITS ---
Exam(s) XR CHEST 2V PA LATERAL EXAM: XR CHEST 2V PA LATERAL CLINICAL HISTORY: COUGH TECHNIQUE: 2D digital imaging was performed of the chest. Two images were obtained. PA and lateral views were obtained. COMPARISON: CR XR CHEST 2V PA LATERAL from 06/25/2022 FINDINGS: MEDIASTINUM: Normal. HEART: Normal. PULMONARY VASCULATURE: Normal. LUNGS: Clear. PLEURAL SPACE: No pleural effusion or pneumothorax. BONE:Within normal limits for the patient's age. Sternal wires are in place. OTHER FINDINGS:Normal. IMPRESSION: No acute pulmonary findings. DATA REPOSITORY: RADIATION DOSE DELIVERED:
== END 2022-08-20 13:17 ==
LOC: DI 13:03
PROVIDERS: PCP Nurse Practitioner; Visit Provider Family Medicine
DX: R05.9 Cough, unspecified (principal)
CPT/HCPCS: 71046

== ENCOUNTER 2022-08-27 15:18 | Emergency (ER) | payer MEDICARE, MEDICAID, SELFPAY ==
--- NOTE | 2022-08-27 | DI.RAD_ITS ---
Exam(s) XR CHEST 2V PA LATERAL EXAM: XR CHEST 2V PA LATERAL CLINICAL HISTORY: sob TECHNIQUE: 2D digital imaging was performed of the chest. Two images were obtained. PA and lateral views were obtained. COMPARISON: CR XR CHEST 2V PA LATERAL from 08/20/2022 FINDINGS: MEDIASTINUM: Normal. HEART: Normal. PULMONARY VASCULATURE: Normal. LUNGS: Clear. PLEURAL SPACE: No pleural effusion or pneumothorax. BONE:Within normal limits for the patient's age. Sternal wires are in place. OTHER FINDINGS:Normal. IMPRESSION: No acute pulmonary findings. DATA REPOSITORY: RADIATION DOSE DELIVERED:
--- NOTE | 2022-08-27 15:15 | RT.EKG_ITS ---
APPROVED REPORT Exam: Resting ECG Reason for Exam: Chest pain Patient Location: E HR:100 bpm ECG Measurements Heart Rate 100 AXIS FL [id number] P [id number] QRSd 82 QRS 66 QT 366 T 33 QTc 472 Conclusion Atrial fibrillation...V-rate 73-126, irreg A-activity Multiple ventricular premature complexes...V complexes w/ short R-R intervls Low voltage, extremity leads...all extremity leads <0.5mV Borderline ST depression, anterior leads...ST <-0.07mV, V2-V4
[2022-08-27 15:40] VITALS: BP 121/79; PULSE 97; RESP 27; TEMP 36.9; O2SAT 92
[2022-08-27 16:08] LABS: Abs Immature Grans 0.01 10^3/uL (0.0-0.06); Absolute Lymphocyte Count 0.72 10^3/uL (1.2-3.4); Absolute Monocyte Count 0.48 10^3/uL (0.1-0.8); Absolute Neutrophil Count 3.14 10^3/uL (1.2-6.7); Eosinophils % 2.2; HCT 35.8 % (36.0-46.0); HGB 11.4 g/dL (11.2-15.7); Immature Grans % 0.2; Lymphocytes % 16.2; MCH 29.5 pg (27.0-33.0); MCHC 31.8 % (32.0-36.0); MCV 93 fL (80-95); Monocytes % 10.8; Neutrophils % 70.6; Platelet Count 217 10^3/uL (130-400); RBC 3.87 10^6/uL (3.93-5.22); RDW 15.9 % (11.7-14.6); RDW-SD 53.4 fL; WBC 4.45 10^3/uL (4.4-10.8)
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
[2022-08-27 16:35] LABS: ALT 12 U/L (14-59); AST 18 U/L (15-37); Albumin 3.7 g/dL (3.4-5.0); Alkaline Phosphatase 126 U/L (46-116); Anion Gap 3.2 mmol/L (3-11); BUN 11 mg/dL (7-18); Bilirubin, Total 0.7 mg/dL (0.2-1.0); CO2 32.8 mmol/L (21.0-32.0); Calcium 9.3 mg/dL (8.5-10.1); Chloride 103 mmol/L (98-107); Glucose 107 mg/dL (74-106); NT-proBNP 2215 pg/mL (<300); Potassium 3.4 mmol/L (3.5-5.1); Sodium 139 mmol/L (136-145); Total Protein 7.2 g/dL (6.4-8.2); Troponin I < 50 ng/L (<or=60)
[2022-08-27 17:09] LABS: Procalcitonin < 0.1 ng/mL
[2022-08-27] MEDS: Furosemide 20 MG/2 ML VIAL IVP (17:42)
[2022-08-27] MEDS: Albuterol/Ipratropium 3 ML UPD VIAL UPD (17:46)
[2022-08-27 19:08] VITALS: BP 133/91; PULSE 111; RESP 16; O2SAT 94
== END 2022-08-27 19:20 | disposition home or self-care (01) ==
PROVIDERS: Emergency Provider Nurse Practitioner Acute Care; PCP Nurse Practitioner
DX: J06.9 Acute upper respiratory infection, unspecified (principal); I48.91 Unspecified atrial fibrillation; I13.0 Hypertensive heart and chronic kidney disease with heart failure and stage 1 through stage 4 chronic kidney disease, or unspecified chronic kidney disease; I50.9 Heart failure, unspecified; N18.31 Chronic kidney disease, stage 3a; J44.9 Chronic obstructive pulmonary disease, unspecified; I25.2 Old myocardial infarction; Z79.01 Long term (current) use of anticoagulants; Z79.82 Long term (current) use of aspirin; Z95.1 Presence of aortocoronary bypass graft
CPT/HCPCS: 36415; 80053; 84145; 93005; 94640; 96374; 99284; 71046; 83735; 83880; 84484; 85025; 93010; J1941; J7620

== ENCOUNTER 2022-09-13 13:08 | Outpatient (CLI) | payer MEDICARE, MEDICAID, SELFPAY ==
[2022-09-13 12:58] LABS: Prothrombin Time 61.3 sec (9.3-11.0)
[2022-09-13 13:03] LABS: INR 6.1 (0.9-1.1)
[2022-09-14 09:42] LABS: Lyme Ab w Rflx to Lyme Confirm Negative (Negative)
[2022-09-15 16:28] LABS: Anaplasma phagocytophilum Negative (Negative); B. miyamotoi PCR Negative (Negative); Babesia divergens/MO-1 Negative (Negative); Babesia duncani Negative (Negative); Babesia microti Negative (Negative); Ehrlichia chaffeensis Negative (Negative); Ehrlichia ewingii/canis Negative (Negative); Ehrlichia muris eauclairensis Negative (Negative)
== END 2022-09-13 13:09 | disposition home or self-care (01) ==
LOC: LBO 13:11
PROVIDERS: Nurse Practitioner Family; PCP Nurse Practitioner; Visit Provider Nurse Practitioner
DX: A69.20 Lyme disease, unspecified (principal); Z79.01 Long term (current) use of anticoagulants; I48.91 Unspecified atrial fibrillation
CPT/HCPCS: 36415; 87798; 85610; 86618

== ENCOUNTER 2022-09-15 09:36 | Outpatient (CLI) | payer MEDICARE, MEDICAID, SELFPAY ==
[2022-09-15 10:05] LABS: INR 1.9 (0.9-1.1); Prothrombin Time 19.1 sec (9.3-11.0)
== END 2022-09-15 09:37 | disposition home or self-care (01) ==
LOC: LBO 09:37
PROVIDERS: PCP Nurse Practitioner; Visit Provider Nurse Practitioner
DX: R79.1 Abnormal coagulation profile (principal); Z79.01 Long term (current) use of anticoagulants
CPT/HCPCS: 36415; 85610

== ENCOUNTER 2022-10-16 07:55 | Emergency (ER) | payer MEDICARE, MEDICAID, SELFPAY ==
[2022-10-16] VITALS (40 sets, daily range): BP systolic 123–186; BP diastolic 59–124; PULSE 52–144; RESP 13–25; TEMP 36.9; O2SAT 92–98
--- NOTE | 2022-10-16 07:45 | RT.EKG_ITS ---
APPROVED REPORT Exam: Resting ECG Reason for Exam: chest pain Patient Location: E HR:126 bpm ECG Measurements Heart Rate 126 AXIS IA 125 P 185 QRSd 87 QRS 73 QT 334 T 24 QTc 484 Conclusion Sinus tachycardia with irregular rate...V-rate 94-165, variation>10% Low voltage, extremity leads...all extremity leads <0.5mV
--- NOTE | 2022-10-16 08:00 | DI.RAD_ITS ---
Exam(s) XR PORTABLE CHEST AP EXAM: XR PORTABLE CHEST AP CLINICAL HISTORY: chest pain. TECHNIQUE: 2D digital imaging was performed. COMPARISON: CR XR CHEST 2V PA LATERAL from 08/27/2022 FINDINGS: Single AP portable view. Sternotomy wires again noted. Heart size is mildly prominent. The mediastinum is not widened. Mild pulmonary venous hypertension pattern but no airspace pulmonary edema. No pleural effusions. N o confluent infiltrates. IMPRESSION: Pulmonary venous hypertension pattern but no airspace pulmonary edema and no pleural effusions. Sternotomy wires again noted. Mild cardiomegaly. DATA REPOSITORY: RADIATION DOSE DELIVERED:
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
[2022-10-16 08:18] LABS: Abs Immature Grans 0.01 10^3/uL (0.0-0.06); Absolute Basophil Count 0.01 10^3/uL (0.0-0.2); Absolute Eosinophil Count 0.14 10^3/uL (0.0-0.7); Absolute Lymphocyte Count 1.46 10^3/uL (1.2-3.4); Absolute Monocyte Count 0.34 10^3/uL (0.1-0.8); Absolute Neutrophil Count 1.84 10^3/uL (1.2-6.7); Basophils % 0.3; Eosinophils % 3.7; HCT 39.3 % (36.0-46.0); HGB 12.7 g/dL (11.2-15.7); Immature Grans % 0.3; Lymphocytes % 38.4; MCH 28.9 pg (27.0-33.0); MCHC 32.3 % (32.0-36.0); MCV 89 fL (80-95); MPV 10.4 fL (8.0-11.0); Monocytes % 8.9; Neutrophils % 48.4; Platelet Count 177 10^3/uL (130-400); RDW 13.2 % (11.7-14.6); RDW-SD 43.2 fL
[2022-10-16] MEDS: dilTIAZem 25 MG/5 ML VIAL 15 MG IVP (08:21)
[2022-10-16 08:33] LABS: INR 3.1 (0.9-1.1); PTT Activated 42.2 sec (21.5-31.9); Prothrombin Time 31.2 sec (9.3-11.0)
[2022-10-16 08:44] LABS: ALT 18 U/L (14-59); AST 30 U/L (15-37); Albumin 3.7 g/dL (3.4-5.0); Alkaline Phosphatase 93 U/L (46-116); Anion Gap 7.6 mmol/L (3-11); BUN 14 mg/dL (7-18); Bilirubin, Total 0.4 mg/dL (0.2-1.0); CO2 27.4 mmol/L (21.0-32.0); Calcium 9.4 mg/dL (8.5-10.1); Chloride 107 mmol/L (98-107); Glucose 97 mg/dL (74-106); Lipase 61 U/L (16-77); Magnesium 2.1 mg/dL (1.8-2.4); NT-proBNP 928 pg/mL (<300); Potassium 4.3 mmol/L (3.5-5.1); Sodium 142 mmol/L (136-145); Total Protein 7.4 g/dL (6.4-8.2); Troponin I < 50 ng/L (<or=60)
[2022-10-16] MEDS: Metoprolol CR 50 MG TABCR PO (09:17)
--- NOTE | 2022-10-16 09:23 | DI.VRAD_ITS ---
PROCEDURE INFORMATION: Exam: XR Chest Exam date and time: 10/16/2022 8:34 AM Age: 82 years old Clinical indication: Pain; Other: Cp TECHNIQUE: Imaging protocol: Radiologic exam of the chest. Views: 1 view. COMPARISON: CR XR CHEST 2V PA LATERAL 08/27/2022 4:24 PM FINDINGS: Lungs: Unremarkable. No consolidation. Pleural spaces: Unremarkable. No pleural effusion. No pneumothorax. Heart/Mediastinum: Grossly stable. Bones/joints: Unremarkable. IMPRESSION: No acute findings. Dictated and Authenticated by: Harjeet Segovia MD. Ordering:MALU Ashby MD
[2022-10-16 11:29] LABS: Troponin I < 50 ng/L (<or=60)
== END 2022-10-16 12:01 | disposition home or self-care (01) ==
PROVIDERS: Emergency Provider Emergency Medicine; PCP Nurse Practitioner
DX: R07.89 Other chest pain (principal); I48.91 Unspecified atrial fibrillation; I10 Essential (primary) hypertension; Z79.899 Other long term (current) drug therapy; Z87.891 Personal history of nicotine dependence
CPT/HCPCS: 36415; 80053; 83690; 93005; 96374; 99284; 99291; 71045; 83735; 83880; 84484; 85025; 85610; 85730; 93010

== ENCOUNTER 2022-11-19 11:46 | Emergency (ER) | payer MEDICARE, MEDICAID, SELFPAY ==
[2022-11-19] VITALS (31 sets, daily range): BP systolic 108–152; BP diastolic 59–95; PULSE 84–165; RESP 12–28; O2SAT 89–100
--- NOTE | 2022-11-19 11:30 | RT.EKG_ITS ---
APPROVED REPORT Exam: Resting ECG Reason for Exam: afib w/ rvr Patient Location: E HR:115 bpm ECG Measurements Heart Rate 115 AXIS DC [id number] P [id number] QRSd 85 QRS 68 QT 349 T [id number] QTc 484 Conclusion Atrial fibrillation...V-rate 93-155, irreg A-activity Low voltage, extremity leads...all extremity leads <0.5mV afib rvr, normal axis, consider rate related st depresions anterior lateral leads
--- NOTE | 2022-11-19 11:45 | DI.RAD_ITS ---
Exam(s) XR PORTABLE CHEST AP EXAM: XR PORTABLE CHEST AP CLINICAL HISTORY: copd, chf TECHNIQUE: 2D digital imaging was performed of the chest. One image was obtained. An AP view was ob tained. COMPARISON: CR,XR XR PORTABLE CHEST AP from 10/16/2022 FINDINGS: MEDIASTINUM: Normal. HEART: Mild cardiomegaly. Status post CABG. PULMONARY VASCULATURE: Normal. LUNGS: Chronic interstitial fibrosis. No focal consolidating infiltrate. PLEURAL SPACE: No pleural effusion or pneumothorax. BONE:Within normal limits for the patient's age. OTHER FINDINGS:Normal. IMPRESSION: No acute pulmonary findings. DATA REPOSITORY: RADIATION DOSE DELIVERED:
[2022-11-19] MEDS: Ipratropium 0.5 MG/2.5 ML UPD VIAL UPD (11:58)
[2022-11-19] MEDS: Dexamethasone 10 MG/ML VIAL IVP (11:58)
[2022-11-19] MEDS: Levalbuterol 1.25 MG/3 ML UPD VIAL UPD (11:58)
[2022-11-19 12:14] LABS: Abs Immature Grans 0.02 10^3/uL (0.0-0.06); Absolute Basophil Count 0.01 10^3/uL (0.0-0.2); Absolute Eosinophil Count 0.04 10^3/uL (0.0-0.7); Absolute Lymphocyte Count 0.77 10^3/uL (1.2-3.4); Absolute Monocyte Count 0.39 10^3/uL (0.1-0.8); Absolute Neutrophil Count 4.13 10^3/uL (1.2-6.7); Basophils % 0.2; Eosinophils % 0.7; HCT 36.7 % (36.0-46.0); HGB 11.4 g/dL (11.2-15.7); Immature Grans % 0.4; Lymphocytes % 14.4; MCH 27.7 pg (27.0-33.0); MCHC 31.1 % (32.0-36.0); MCV 89 fL (80-95); MPV 9.8 fL (8.0-11.0); Monocytes % 7.3; Platelet Count 180 10^3/uL (130-400); RBC 4.12 10^6/uL (3.93-5.22); RDW 14.6 % (11.7-14.6); RDW-SD 47.2 fL; WBC 5.36 10^3/uL (4.4-10.8)
[2022-11-19] MEDS: Furosemide 40 MG/4 ML VIAL IVP (12:22)
[2022-11-19 12:37] LABS: INR 2.3 (0.9-1.1); PTT Activated 40.5 sec (21.5-31.9); Prothrombin Time 23.6 sec (9.3-11.0)
[2022-11-19 12:38] LABS: ALT 12 U/L (14-59); AST 15 U/L (15-37); Albumin 3.8 g/dL (3.4-5.0); Alkaline Phosphatase 71 U/L (46-116); BUN 12 mg/dL (7-18); Bilirubin, Total 0.9 mg/dL (0.2-1.0); Calcium 8.9 mg/dL (8.5-10.1); Chloride 108 mmol/L (98-107); Glucose 108 mg/dL (74-106); NT-proBNP 2168 pg/mL (<300); Potassium 3.4 mmol/L (3.5-5.1); Sodium 145 mmol/L (136-145); Total Protein 7.2 g/dL (6.4-8.2)
[2022-11-19 12:42] LABS: Magnesium 2.1 mg/dL (1.8-2.4); TSH (W/Ref FT4) 1.88 uIU/mL (0.36-3.74)
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
[2022-11-19] MEDS: Metoprolol 25 MG TAB PO (13:08)
== END 2022-11-19 15:46 | disposition home or self-care (01) ==
PROVIDERS: Emergency Provider Emergency Medicine; PCP Nurse Practitioner
DX: I48.20 Chronic atrial fibrillation, unspecified (principal); R06.2 Wheezing; J44.1 Chronic obstructive pulmonary disease with (acute) exacerbation; I50.9 Heart failure, unspecified
CPT/HCPCS: 36415; 51702; 80053; 93005; 96374; 96375; 99284; 71045; 83735; 83880; 84443; 85025; 85610; 85730; 93010; J1100; J1940; J7614; J7644

== ENCOUNTER 2022-11-22 14:54 | Emergency (ER) | payer MEDICARE, MEDICAID, SELFPAY ==
[2022-11-22] VITALS (50 sets, daily range): BP systolic 134–176; BP diastolic 68–107; PULSE 67–136; RESP 16–36; O2SAT 94–98
--- NOTE | 2022-11-22 14:45 | RT.EKG_ITS ---
APPROVED REPORT Exam: Resting ECG Reason for Exam: SOB Patient Location: E HR:115 bpm ECG Measurements Heart Rate 115 AXIS CO [id number] P [id number] QRSd 84 QRS 76 QT 366 T 23 QTc 508 Conclusion Atrial fibrillation...V-rate 86-109, irreg A-activity Prolonged QT interval...QTc >500mS Atrial fibrillation with rapid ventricular response at a rate of 115 bpm. Low voltage. No ST segmen t abnormalities. No T wave inversions. Appears similar to prior from earlier this month except for newly prolonged QT
--- NOTE | 2022-11-22 15:15 | DI.RAD_ITS ---
Exam(s) XR CHEST 2V PA LATERAL EXAM: XR CHEST 2V PA LATERAL CLINICAL HISTORY: htn, hx of chf copd. TECHNIQUE: 2D digital imaging was performed. COMPARISON: CR XR PORTABLE CHEST AP from 11/19/2022 FINDINGS: 2 views: Sternotomy wires. Mild cardiomegaly. Mediastinum not widened. Lungs are clear. No infiltrates nor pleural effusions. Mild increased markings but no evidence of pulmonary edema. No obvious pleural effusions. IMPRESSION: No acute pulmonary findings. Sternotomy-CABG. No pulmonary edema. DATA REPOSITORY: RADIATION DOSE DELIVERED:
--- NOTE | 2022-11-22 15:15 | DI.CT_ITS ---
Exam(s) CT HEAD WO EXAM: CT HEAD WO CLINICAL HISTORY: genralized weakness. TECHNIQUE: Imaging Protocol: Axial computed tomography images with coronal and sagittal reformatted images were created and reviewed COMPARISON: No exams were available for comparison FINDINGS: There are no skull fractures. There is no fluid in the visualized paranasal sinuses. There is no evidence of intracranial hemorrhage, mass effect, or shift of midline structures. There are no extra-axial fluid collections. Ventricular size is slightly prominent but not at a portion re lative to the overlying cortical sulci. IMPRESSION: No acute intracranial findings on this noninfused CT scan of the brain. If clinically indicated follow-up MRI can be performed. Called by myself to ER RADIATION DOSE DELIVERED: 735.43mGy.cm Total DLP DATA REPOSITORY: All CT scans at this facility are submitted to the National Radiology Data Registry (NRDR) Dose Index Registry (DIR) with the [employer] ([employer]). RADIATION OPTIMIZATION: All CT scans at this facility use at least one of these dose optimization te chniques: automated exposure control; mA and/or kV adjustment per patient size (includes targeted exa ms where dose is matched to clinical indication); or iterative reconstruction.
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
[2022-11-22] MEDS: hydrALAZINE 20 MG/ML VIAL 10 MG IVP (15:25)
[2022-11-22 15:28] LABS: Abs Immature Grans 0.02 10^3/uL (0.0-0.06); Absolute Basophil Count 0.02 10^3/uL (0.0-0.2); Absolute Eosinophil Count 0.22 10^3/uL (0.0-0.7); Absolute Lymphocyte Count 1.47 10^3/uL (1.2-3.4); Absolute Monocyte Count 0.63 10^3/uL (0.1-0.8); Absolute Neutrophil Count 4.03 10^3/uL (1.2-6.7); Basophils % 0.3; Eosinophils % 3.4; HCT 38.5 % (36.0-46.0); HGB 12.1 g/dL (11.2-15.7); Immature Grans % 0.3; MCH 27.9 pg (27.0-33.0); MCHC 31.4 % (32.0-36.0); MCV 89 fL (80-95); MPV 9.9 fL (8.0-11.0); Monocytes % 9.9; Neutrophils % 63.1; Platelet Count 221 10^3/uL (130-400); RBC 4.34 10^6/uL (3.93-5.22); RDW 14.6 % (11.7-14.6); RDW-SD 46.6 fL; WBC 6.39 10^3/uL (4.4-10.8)
[2022-11-22 15:35] LABS: Bilirubin Negative (Negative); Blood Negative (Negative); Clarity Clear (Clear); Glucose Negative (Negative); Ketones Negative (Negative); Leukocyte Esterase Negative (Negative); Nitrite Negative (Negative); Specific Gravity 1.015 (1.005-1.025)
[2022-11-22 15:42] LABS: INR 1.7 (0.9-1.1); Prothrombin Time 17.4 sec (9.3-11.0)
[2022-11-22 16:01] LABS: ALT 18 U/L (14-59); AST 27 U/L (15-37); Albumin 4.1 g/dL (3.4-5.0); Alkaline Phosphatase 71 U/L (46-116); Anion Gap 6.3 mmol/L (3-11); BUN 18 mg/dL (7-18); Bilirubin, Total 0.9 mg/dL (0.2-1.0); CO2 31.7 mmol/L (21.0-32.0); CREATININE 1.2 mg/dL (0.55-1.02); Calcium 9.4 mg/dL (8.5-10.1); Chloride 104 mmol/L (98-107); Estimated GFR 45.48 (mL/min/1.73m2); Glucose 94 mg/dL (74-106); NT-proBNP 1458 pg/mL (<300); Potassium 3.1 mmol/L (3.5-5.1); Sodium 142 mmol/L (136-145); TSH (W/Ref FT4) 3.54 uIU/mL (0.36-3.74); Total Protein 7.7 g/dL (6.4-8.2); Troponin I < 50 ng/L (<or=60)
[2022-11-22] MEDS: dilTIAZem 25 MG/5 ML VIAL 15 MG IVP (17:30)
--- NOTE | 2022-11-24 11:56 | NUR.NOTE ---
Nursing Note: Accessed pt chart to determine EKG orders and if one needed to be deleted.
== END 2022-11-22 19:29 | disposition home or self-care (01) ==
PROVIDERS: Emergency Provider Emergency Medicine; PCP Nurse Practitioner
DX: R53.83 Other fatigue (principal); I10 Essential (primary) hypertension; I48.91 Unspecified atrial fibrillation; R06.02 Shortness of breath
CPT/HCPCS: 80053; 93005; 96374; 96375; 99285; 70450; 71046; 81003; 83880; 84443; 84484; 85025; 85610; 85730; 93010; 99284; J0360

== ENCOUNTER → 2022-12-30 11:45 | Outpatient (BNVA) | payer MEDICARE, MEDICAID, SELFPAY | PROVIDERS: PCP Nurse Practitioner; Visit Provider Internal Medicine Cardiovascular Disease | DX: Z79.01 Long term (current) use of anticoagulants (principal); I13.0 Hypertensive heart and chronic kidney disease with heart failure and stage 1 through stage 4 chronic kidney disease, or unspecified chronic kidney disease; N18.9 Chronic kidney disease, unspecified; I25.810 Atherosclerosis of coronary artery bypass graft(s) without angina pectoris; J44.9 Chronic obstructive pulmonary disease, unspecified; I48.91 Unspecified atrial fibrillation; I50.9 Heart failure, unspecified | CPT/HCPCS: 99213 ==

== ENCOUNTER → 2023-01-13 12:33 | Outpatient (BNVA) | payer MEDICARE, MEDICAID, SELFPAY | PROVIDERS: PCP Nurse Practitioner; Referring Provider Nurse Practitioner; Visit Provider Nurse Practitioner Adult Health | CPT/HCPCS: 99204 ==

== ENCOUNTER 2023-01-13 15:11 | Outpatient (CLI) | payer MEDICARE, MEDICAID, SELFPAY ==
[2023-01-13 15:23] LABS: Vitamin B12 232 pg/mL (193-986)
== END 2023-01-13 15:12 | disposition home or self-care (01) ==
LOC: LBO 15:13
PROVIDERS: PCP Nurse Practitioner; Visit Provider Nurse Practitioner Adult Health
DX: R41.89 Other symptoms and signs involving cognitive functions and awareness (principal)
CPT/HCPCS: 36415; 99215; 82607

== ENCOUNTER → 2023-01-27 02:25 | Outpatient (CLI) | payer MEDICARE, MEDICAID, SELFPAY ==
--- NOTE | 2023-01-27 08:10 | DI.MRI_ITS ---
Exam(s) MR BRAIN WO EXAM: MR BRAIN WO CLINICAL HISTORY: visual and auditory hallucination, headache,r44.3,r51.9 TECHNIQUE: Multiplanar multisequence MRI of the brain was performed. COMPARISON: CT CT HEAD WO from 11/22/2022 FINDINGS: CEREBRAL PARENCHYMA: There is no evidence of intracranial hemorrhage, mass effect, or shift of midline structures. There are no extra-axial fluid collections. Ventricles are not enlarged or shifted. There is no significant focal signal abnormality in the cerebellar hemispheres nor within the sol, m idbrain, and thalami. There is relatively symmetrical patchy signal abnormality in the periventricular white matter, not as sociated with hemorrhage, surrounding edema nor restricted diffusion and consistent with chronic smal l vessel ischemic changes. There is no significant focal signal abnormality evident on diffusion imaging to suggest acute ischem ic event. PITUITARY GLAND: No mass nor parasellar abnormality. No obvious abnormality in the cavernous sinuses. FLOW VOIDS: The expected flow void are noted. No evidence of obvious aneurysm nor obvious vascular ma lformation. PARANASAL SINUSES: The visualized paranasal sinuses appear unremarkable. No obvious finding ORBITS: No obvious findings. IMPRESSION: No significant acute intracranial findings on this noninfused MRI scan of the brain. There is a moderate amount of bilateral and relatively symmetrical periventricular white matter signa l abnormality consistent with chronic small vessel ischemic changes. DATA REPOSITORY:
== END ==
PROVIDERS: PCP Nurse Practitioner; Visit Provider Nurse Practitioner
DX: R44.3 Hallucinations, unspecified (principal); R51.9 Headache, unspecified
CPT/HCPCS: 70551

== ENCOUNTER → 2023-03-10 09:13 | Outpatient (BNVA) | payer MEDICARE, MEDICAID, SELFPAY | PROVIDERS: PCP Nurse Practitioner; Referring Provider Nurse Practitioner; Visit Provider Nurse Practitioner Adult Health | DX: R44.3 Hallucinations, unspecified (principal); F03.90 Unspecified dementia, unspecified severity, without behavioral disturbance, psychotic disturbance, mood disturbance, and anxiety | CPT/HCPCS: 99214 ==